=== PATIENT | female | born 1940 | race Caucasian/White ===

== ENCOUNTER 2017-01-04 17:42 | Inpatient (IN) | payer MEDICARE, OTHER ==
--- NOTE | 2017-01-04 18:43 | C.PDOC ---
History Of Present Illness 76F c/o gradual onset headache for the last couple days. no exac or reliev fx. had a headache last ton but otherwise no hx of headaches. also reports int "dizziness" which seems to be spinning sensation not lightheadedness. Time Seen by Provider: 01/04/17 17:57 Past Medical History Vital Signs: Last Vital Signs Temp 98.5 F 01/05/17 08:18 Pulse 98 H 01/05/17 09:01 Resp 20 01/05/17 08:18 BP 170/89 H 01/05/17 08:18 Pulse Ox 98 01/05/17 08:18 - Medical History PMH: Arthritis (MILD), Diabetes, HTN, Hypercholesterolemia, Chronic Kidney Disease ("STAGE 4" ON MED RECORD) - [employer] Procedures ASSISTANCE WITH RESPIRATORY VENTILATION, <24 HRS, CPAP (11/11/15) CONTINUOUS INVASIVE MECHANICAL VENTILATION <96 CONSEC HRS (04/10/14) CYSTOMETROGRAM (03/25/15) CYSTOSCOPY NEC (03/25/15) EXCISION OF STOMACH, ENDO, DIAGN (11/11/15) INSERT INDWELLING CATH (04/11/15) INSERT INFUSION DEV IN R INT JUGULAR VEIN, PERC (11/11/15) INTRODUCE OTH ANTI-INFECT IN CENTRAL VEIN, PERC (11/11/15) TRANSFUSE NONAUT RED BLOOD CELLS IN PERIPH VEIN, PERC (11/11/15) ULTRASONOGRAPHY OF PERICARDIUM, TRANSESOPHAGEAL (11/11/15) Family History: States: Other (nc) - Social History Hx Tobacco Use: No Hx Alcohol Use: No Hx Substance Use: No - Immunization History Hx Tetanus Toxoid Vaccination: No Hx Influenza Vaccination: No Hx Pneumococcal Vaccination: No Review Of Systems Except As Marked, All Systems Reviewed And Found Negative. Constitutional: Negative for: Fever, Chills Eyes: Negative for: Vision Change Cardiovascular: Negative for: Chest Pain Respiratory: Negative for: Cough, Shortness of Breath Gastrointestinal: Positive for: Nausea. Negative for: Vomiting, Abdominal Pain Genitourinary: Negative for: Dysuria Neurological: Positive for: Headache. Negative for: Weakness, Numbness, Incoordination, Change in Speech, Confusion, Altered Mental Status Physical Exam - Physical Exam Appears: Well, Non-toxic, No Acute Distress Skin: Warm, Dry Head: Atraumatic Eye(s): bilateral: PERRL, EOMI Oral Mucosa: Moist Neck: Normal ROM Cardiovascular: Rhythm Regular Respiratory: No Decreased Breath Sounds, No Accessory Muscle Use, No Rales, No Rhonchi, No Wheezing Gastrointestinal/Abdominal: Soft, No Tenderness Extremity: Swelling (1+ pitting edema ble) Pulses: Left Radial: Normal, Right Radial: Normal Neurological/Psych: Oriented x3, Normal Cranial Nerves, Normal Motor, Normal Sensation, Other (no focal deficits) ED Course And Treatment - Laboratory Results Result Diagrams: 01/04/17 19:01 01/04/17 19:01 O2 Sat by Pulse Oximetry: 99 - CT Scan/US CT head Other Rad Studies (CT/US): Read By Radiologist, Radiology Report Reviewed CT/US Interpretation: EXAM: CT Head Without Intravenous Contrast. CLINICAL HISTORY: 76 year old female with dizziness and headache. TECHNIQUE: Axial computed tomography images of the head without intravenous contrast. This CT exam was performed using one or more of the following dose reduction techniques : automated exposure control, adjustment of the mA and/or kV according to patient size, and/or use of. iterative reconstruction technique. EXAM DATE/ TIME: 01/04/17 (6:45pm). COMPARISON: CT HEAD of 11/21/15. FINDINGS: Brain: No acute hemorrhage. No cerebral edema. Age-appropriate atrophic changes. Ventricles: Unremarkable. No ventriculomegaly. Bones/joints: Unremarkable. No acute fracture. Soft tissues: Unremarkable. Sinuses: Unremarkable as visualized. No acute sinusitis. Mastoid air cells: Unremarkable as visualized. No mastoid effusion. IMPRESSION: No acute intracranial pathology is appreciated. Age-appropriate atrophic changes. Similar findings were noted 7 weeks ago. Thank you for allowing us to participate in the care of your patient. Dictated and Authenticated by: Shadia Mehta MD. 01/04/2017 8:03 PM Eastern Time ([place] & [place]) Disposition - Disposition Disposition: HOSPITALIZED Disposition Time: 21:53 Condition: STABLE - Clinical Impression Clinical Impression: UTI (urinary tract infection), Headache, Vertigo
[2017-01-04 18:45] VITALS: BMI 29.2
[2017-01-04 19:04] LABS: BASO # 0.1 K/uL (0.0-0.2); BASO % 0.5 % (0.0-2.0); EOS # 0.1 K/uL (0.0-0.7); EOS % 1.1 % (0.0-4.0); HEMATOCRIT 33.8 % (34.0-47.0); LYMPH # 1.6 K/uL (1.0-4.3); MEAN CELL VOLUME 84.9 fL (81.0-99.0); MEAN CORPUSCULAR HGB CONC 31.8 g/dL (33.0-37.0); MEAN PLATELET VOLUME 6.9 fL (7.2-11.7); MONO # 0.7 K/uL (0.0-0.8); MONO % 6.2 % (0.0-10.0); RED CELL DISTRIBUTION WIDTH 14.2 % (11.5-14.5); WHITE BLOOD COUNT 11.1 K/uL (4.8-10.8)
[2017-01-04 19:12] LABS: POTASSIUM 3.8 mmol/L (3.6-5.2)
[2017-01-04 19:13] LABS: RBC URINE 5 /hpf (0-3); TRANSITIONAL EPITHIAL 1 /hpf (0-3); URINE BACTERIA MANY (<OCC); URINE BILIRUBIN NEGATIVE (NEGATIVE); URINE BLOOD 1+ (NEGATIVE); URINE COLOR Yellow (YELLOW); URINE GLUCOSE (UA) 1+ mg/dL (Normal); URINE KETONE NEGATIVE (NEGATIVE); URINE LEUKOCYTE ESTERASE 3+ Leu/uL (Negative); URINE PROTEIN 2+ mg/dL (NEGATIVE); URINE UROBILINOGEN NORMAL mg/dL (0.2-1.0); WBC URINE 92 /hpf (0-5)
[2017-01-04 19:15] LABS: ALB/GLOB RATIO 1.1 (1.0-2.1); BILIRUBIN,TOTAL 0.5 mg/dL (0.2-1.3); TOTAL PROTEIN 8.6 g/dL (6.3-8.3)
[2017-01-05] MEDS: Piperacill/Tazo 2.25gm in Dex 50 ML IVPB SCH ×4 (00:21→22:05)
[2017-01-05] MEDS: (Novolog) Insulin Aspart, Recombinant 100 u/ml 10 ml vial SC SCH ×4 (07:57→22:33)
--- NOTE | 2017-01-05 08:08 | CT ---
PROCEDURE: CT HEAD WITHOUT CONTRAST. HISTORY: headache COMPARISON: Comparison is made to the previous study dated 11/21/2015 TECHNIQUE: Axial computed tomography images were obtained through the head/brain without intravenous contrast. Radiation dose: Total exam DLP = 699.76 mGy-cm. FINDINGS: HEMORRHAGE: No intracranial hemorrhage. BRAIN: No mass effect or edema. [id number] atrophy and mild chronic microvascular white matter ischemic disease are again noted. VENTRICLES: Unremarkable. No hydrocephalus. CALVARIUM: Unremarkable. PARANASAL SINUSES: Unremarkable as visualized. No significant inflammatory changes. MASTOID AIR CELLS: Unremarkable as visualized. No inflammatory changes. OTHER FINDINGS: None. IMPRESSION: No evidence of acute intracranial hemorrhage territorial infarct mass effect or midline shift. Preliminary report was submitted by virtual Radiology.
[2017-01-05] MEDS: Metoprolol Succinate 50 mg XL Tab PO SCH (09:43)
[2017-01-05] MEDS ORDERED: Metoprolol Succinate 25 mg XL Tab PO SCH (10:00)
--- NOTE | 2017-01-05 12:12 | CARD ---
APPROVED REPORT EKG Measurement Heart [id number] <Conclusion> Normal sinus rhythm Normal ECG
[2017-01-05] MEDS: Rosuvastatin Calcium 2.5 mg Tab PO SCH (22:05)
--- NOTE | 2017-01-05 23:43 | CP.PCM.HP ---
History of Present Illness - History of Present Illness History of Present Illness: Cheif complain:abdominal pain and headache Pt is a 76 year old female well known to me with PMH significant for HTn, Hyperlipidemia, neurogenic bladder on foleys, Osteoarthritis, CKD who is complaint to medications, follow up, c/o gradual onset headache for the last couple days. no exac or reliev fx. had a headache last ton but otherwise no hx of headaches. also reports int "dizziness" which seems to be spinning sensation not lightheadedness. Pt have been having persistant abdo mnial pain since last 2 weeks which is intermittent associated with nausea, vomitting, headaches, body aches, fever, chills, anorexia and malaise. she has gen fatigue and weakness, urine is cloudy, last vomiting was last night, today she is nauseous. Review of Systems - Review of Systems Systems not reviewed;Unavailable: Acuity of Condition - Constitutional Constitutional: Anorexia, Chills, Fatigue, Fever - EENT Eyes: absent: As Per HPI, Blind Spots, Blurred Vision, Change in Vision, Decreased Night Vision, Diplopia, Discharge, Dry Eye, Exophthalmos, Floaters, Irritation, Itchy Eyes, Loss of Peripheral Vision, Pain, Photophobia, Requires Corrective Lenses, Sees Flashes, Spots in Vision, Tunnel Vision, Other Visual Disturbances, Loss of Vision, Other Nose/Mouth/Throat: absent: As Per HPI, Epistaxis, Nasal Congestion, Nasal Discharge, Nasal Obstruction, Nasal Trauma, Nose Pain, Post Nasal Drip, Sinus Pain, Sinus Pressure, Bleeding Gums, Change in Voice, Dental Pain, Dry Mouth, Dysphagia, Halitosis, Hoarsness, Lip Swelling, Mouth Lesions, Mouth Pain, Odynophagia, Sore Throat, Throat Swelling, Tongue Swelling, Facial Pain, Neck Pain, Neck Mass, Other - Cardiovascular Cardiovascular: absent: As Per HPI, Acrocyanosis, Chest Pain, Chest Pain at Rest , Chest Pain with Activity, Claudication, Diaphoresis, Dyspnea, Dyspnea on Exertion, Edema, Irregular Heart Rhythm, Pain Radiating to Arm/Neck/Jaw, Leg Edema, Leg Ulcers, Lightheadedness, Orthopnea, Palpitations, Paroxysmal Nocturnal Dyspnea, Pedal Edema, Radiating Pain, Rapid Heart Rate, Slow Heart Rate, Syncope, Other - Respiratory Respiratory: absent: As Per HPI, Cough, Dyspnea, Hemoptysis, Dyspnea on Exertion , Wheezing, Snoring, Stridor, Pain on Inspiration, Chest Congestion, Excessive Mucous Production, Change in Mucous Color, Pain with Coughing, Other - Gastrointestinal Gastrointestinal: Abdominal Pain, Change in Bowel Habits, Nausea - Genitourinary Genitourinary: Change in Urinary Stream, Dysuria, Pyuria, Urinary Frequency, Urinary Urgency - Musculoskeletal Musculoskeletal: Back Pain, Muscle Weakness, Myalgias - Neurological Neurological: Dizziness, Headaches Past Patient History - Infectious Disease Hx of Infectious Diseases: None - Past Medical History & Family History Past Medical History?: Yes - Past Social History Smoking Status: Never Smoked - CARDIAC Hx Hypercholesterolemia: Yes Hx Hypertension: Yes - PULMONARY Hx Respiratory Disorders: No - NEUROLOGICAL Hx Neurological Disorder: No - HEENT Hx HEENT Problems: Yes Hx Cataracts: Yes (BENJIE IOL) Hx Glaucoma: Yes - RENAL Hx Chronic Kidney Disease: Yes ("STAGE 4" ON MED RECORD) - HEMATOLOGICAL/ONCOLOGICAL Hx Blood Disorders: No - INTEGUMENTARY Hx Dermatological Problems: No - MUSCULOSKELETAL/RHEUMATOLOGICAL Hx Arthritis: Yes (MILD) - GASTROINTESTINAL Hx Gastrointestinal Disorders: No - GENITOURINARY/GYNECOLOGICAL Hx Genitourinary Disorders: Yes (PT. HAS PERALES CATH INPLACE(01/23/16)) Hx Urinary Tract Infection: Yes Other/Comment: Perales Catheter - PSYCHIATRIC Hx Substance Use: No - SURGICAL HISTORY Hx Surgeries: Yes Hx Herniorrhaphy: Yes (UMBILICAL HERNIA) - ANESTHESIA Hx Anesthesia: Yes Hx Anesthesia Reactions: No Hx Malignant Hyperthermia: No Meds Allergies/Adverse Reactions: Allergies Allergy/AdvReac Type Severity Reaction Status Date / Time No Known Allergies Allergy Verified 01/04/17 18:45 Physical Exam - Constitutional Appears: No Acute Distress - Eye Exam Eye Exam: EOMI, Normal appearance, PERRL Pupil Exam: NORMAL ACCOMODATION, PERRL - ENT Exam ENT Exam: Mucous Membranes Moist, Normal Exam - Respiratory Exam Respiratory Exam: NORMAL BREATHING PATTERN - Cardiovascular Exam Cardiovascular Exam: REGULAR RHYTHM - GI/Abdominal Exam GI & Abdominal Exam: Normal Bowel Sounds, Soft. absent: Tenderness Additional comments: foleys in place with cloudy urine - Skin Skin Exam: Pallor Additional comments: senile turgor Results - Vital Signs Recent Vital Signs: Last Vital Signs Temp 98.2 F 01/05/17 15:42 Pulse 86 01/05/17 16:00 Resp 20 01/05/17 15:42 BP 125/84 01/05/17 15:42 Pulse Ox 97 01/05/17 15:42 - Labs Result Diagrams: 01/04/17 19:01 01/04/17 19:01 Labs: Laboratory Results - last 24 hr 01/05/17 21:02 POC Glucose (mg/dL) 223 H Assessment & Plan (1) UTI (urinary tract infection) Assessment and Plan: rule out septicemia pancultures Status: Acute Priority: High (2) Neurogenic bladder disorder Status: Acute (3) Abdominal pain Status: Acute (4) CKD (chronic kidney disease) Status: Acute (5) Diabetes Status: Acute
[2017-01-06] MEDS: Piperacill/Tazo 2.25gm in Dex 50 ML IVPB SCH ×3 (05:21→21:18)
[2017-01-06] MEDS: (Novolog) Insulin Aspart, Recombinant 100 u/ml 10 ml vial SC SCH ×4 (08:08→21:53)
[2017-01-06] MEDS: Metoprolol Succinate 50 mg XL Tab PO SCH (09:22)
[2017-01-06 12:06] LABS: BASO # 0.1 K/uL (0.0-0.2); BASO % 0.6 % (0.0-2.0); EOS # 0.3 K/uL (0.0-0.7); EOS % 3.7 % (0.0-4.0); HEMATOCRIT 33.6 % (34.0-47.0); LYMPH # 2.1 K/uL (1.0-4.3); LYMPH % 23.2 % (20.0-40.0); MEAN CELL VOLUME 85.5 fL (81.0-99.0); MEAN CORPUSCULAR HEMOGLOBIN 28.2 pg (27.0-31.0); MEAN PLATELET VOLUME 7.5 fL (7.2-11.7); MONO # 0.7 K/uL (0.0-0.8); MONO % 8.1 % (0.0-10.0); RED CELL DISTRIBUTION WIDTH 14.6 % (11.5-14.5)
[2017-01-06 12:12] LABS: POTASSIUM 4.7 mmol/L (3.6-5.2)
[2017-01-06 12:16] LABS: CALCIUM 8.2 mg/dl (8.6-10.4)
[2017-01-06] MEDS: Rosuvastatin Calcium 2.5 mg Tab PO SCH (21:18)
[2017-01-07] MEDS: Piperacill/Tazo 2.25gm in Dex 50 ML IVPB SCH ×3 (05:53→22:35)
[2017-01-07] MEDS: (Novolog) Insulin Aspart, Recombinant 100 u/ml 10 ml vial SC SCH ×4 (07:46→21:42)
[2017-01-07] MEDS: Metoprolol Succinate 50 mg XL Tab PO SCH (09:25)
[2017-01-07] MEDS ORDERED: Influenza Virus Vaccine 45 mcg/0.5 ml Syr IM ONE (10:00)
[2017-01-07] MEDS ORDERED: Pneumococcal 23-Valent Vaccine IM ONE (10:00)
--- NOTE | 2017-01-07 16:18 | CP.PCM.PN ---
Subjective - Date & Time of Evaluation Date of Evaluation: 01/06/17 - Subjective Subjective: pt seen and examined, is afebrile, on zosyn, for complicated UTI, continue current meds Objective - Vital Signs/Intake and Output Vital Signs (last 24 hours): Temp Pulse Resp BP Pulse Ox 99.4 F 75 20 152/89 H 97 01/07/17 00:00 01/07/17 00:35 01/07/17 00:00 01/07/17 00:00 01/07/17 00:00 Intake and Output: 01/07/17 01/07/17 06:59 18:59 Intake Total 455 Output Total 650 Balance -195 - Medications Medications: Current Medications Acetaminophen (Tylenol 325mg Tab) 650 mg PO Q6 PRN PRN Reason: Pain, moderate (4-7) Last Admin: 01/07/17 12:09 Dose: 650 mg Docusate Sodium (Colace) 100 mg PO BID [facility] Last Admin: 01/07/17 09:25 Dose: 100 mg Heparin Sodium (Porcine) (Heparin) 5,000 units SC Q12 [facility] Last Admin: 01/07/17 09:25 Dose: 5,000 units Piperacillin Sod/Tazobactam Sod (Zosyn 2.25 Gm Iv Premix) 50 mls @ 100 mls/hr IVPB Q8 [facility] Last Admin: 01/07/17 14:41 Dose: 100 mls/hr Imipenem/Cilastatin Sodium 250 (mg/ Sodium Chloride) 100 mls @ 100 mls/hr IVPB Q12 [facility] Insulin Aspart (Novolog) 0 unit SC ACHS [facility] PRN Reason: Protocol Last Admin: 01/07/17 12:05 Dose: 3 unit Losartan Potassium (Cozaar) 25 mg PO DAILY [facility] Last Admin: 01/07/17 09:25 Dose: 25 mg Metoprolol Succinate (Toprol Xl) 50 mg PO DAILY [facility] Last Admin: 01/07/17 09:25 Dose: 50 mg Rosuvastatin Calcium (Crestor) 2.5 mg PO HS [facility] Last Admin: 01/06/17 21:18 Dose: 2.5 mg Sennosides (Senokot Tab) 8.6 mg PO DAILY [facility] Last Admin: 01/07/17 09:25 Dose: 8.6 mg - Labs Labs: 01/06/17 11:57 01/06/17 11:57 - Constitutional Appears: No Acute Distress - Head Exam Head Exam: ATRAUMATIC, NORMAL INSPECTION, NORMOCEPHALIC - Eye Exam Eye Exam: EOMI, Normal appearance, PERRL Pupil Exam: NORMAL ACCOMODATION, PERRL - Respiratory Exam Respiratory Exam: Clear to Ausculation Bilateral, NORMAL BREATHING PATTERN - Cardiovascular Exam Cardiovascular Exam: REGULAR RHYTHM, +S1, +S2. absent: Murmur - GI/Abdominal Exam GI & Abdominal Exam: Soft, Normal Bowel Sounds. absent: Tenderness Assessment and Plan (1) UTI (urinary tract infection) Status: Acute (2) Neurogenic bladder disorder Status: Acute (3) Abdominal pain Status: Acute (4) CKD (chronic kidney disease) Status: Acute (5) Diabetes Status: Acute
[2017-01-07] MEDS: Imipenem/Cilastatin 250 MG in Sodium Chloride 100 ML IVPB SCH (21:23)
[2017-01-07] MEDS: Rosuvastatin Calcium 2.5 mg Tab PO SCH (21:28)
[2017-01-07] MEDS ORDERED: Imipenem/Cilastatin 500 MG in Dextrose 5% In Water 100 ML IVPB SCH (22:00)
--- NOTE | 2017-01-08 00:39 | CP.PCM.PN ---
Subjective - Date & Time of Evaluation Date of Evaluation: 01/07/17 - Subjective Subjective: Pt seen & examined,, is improving, afebrile, on zosyn, for complicated UTI, continue current meds Objective - Vital Signs/Intake and Output Vital Signs (last 24 hours): Temp Pulse Resp BP Pulse Ox 98.6 F 71 20 146/83 96 01/07/17 23:35 01/07/17 23:35 01/07/17 23:35 01/07/17 23:35 01/07/17 23:35 Intake and Output: 01/07/17 01/08/17 18:59 06:59 Intake Total 240 250 Output Total 450 Balance 240 -200 - Medications Medications: Current Medications Acetaminophen (Tylenol 325mg Tab) 650 mg PO Q6 PRN PRN Reason: Pain, moderate (4-7) Last Admin: 01/07/17 21:21 Dose: 650 mg Docusate Sodium (Colace) 100 mg PO BID [facility] Last Admin: 01/07/17 17:59 Dose: Not Given Heparin Sodium (Porcine) (Heparin) 5,000 units SC Q12 [facility] Last Admin: 01/07/17 21:28 Dose: 5,000 units Piperacillin Sod/Tazobactam Sod (Zosyn 2.25 Gm Iv Premix) 50 mls @ 100 mls/hr IVPB Q8 [facility] Last Admin: 01/07/17 22:35 Dose: 100 mls/hr Imipenem/Cilastatin Sodium 250 (mg/ Sodium Chloride) 100 mls @ 100 mls/hr IVPB Q12 [facility] Last Admin: 01/07/17 21:23 Dose: 100 mls/hr Insulin Aspart (Novolog) 0 unit SC ACHS [facility] PRN Reason: Protocol Last Admin: 01/07/17 21:42 Dose: Not Given Losartan Potassium (Cozaar) 25 mg PO DAILY [facility] Last Admin: 01/07/17 09:25 Dose: 25 mg Metoprolol Succinate (Toprol Xl) 50 mg PO DAILY [facility] Last Admin: 01/07/17 09:25 Dose: 50 mg Rosuvastatin Calcium (Crestor) 2.5 mg PO HS [facility] Last Admin: 01/07/17 21:28 Dose: 2.5 mg Sennosides (Senokot Tab) 8.6 mg PO DAILY [facility] Last Admin: 01/07/17 09:25 Dose: 8.6 mg - Labs Labs: 01/06/17 11:57 01/06/17 11:57 - Constitutional Appears: No Acute Distress - Head Exam Head Exam: ATRAUMATIC, NORMAL INSPECTION, NORMOCEPHALIC - Eye Exam Eye Exam: EOMI, Normal appearance, PERRL Pupil Exam: NORMAL ACCOMODATION, PERRL - Respiratory Exam Respiratory Exam: Clear to Ausculation Bilateral, NORMAL BREATHING PATTERN - Cardiovascular Exam Cardiovascular Exam: REGULAR RHYTHM, +S1, +S2. absent: Murmur - GI/Abdominal Exam GI & Abdominal Exam: Soft, Normal Bowel Sounds. absent: Tenderness Assessment and Plan (1) UTI (urinary tract infection) Status: Acute (2) Neurogenic bladder disorder Status: Acute (3) Abdominal pain Status: Acute (4) CKD (chronic kidney disease) Status: Acute (5) Diabetes Status: Acute
[2017-01-08] MEDS: Piperacill/Tazo 2.25gm in Dex 50 ML IVPB SCH ×3 (05:59→22:38)
[2017-01-08 07:18] LABS: BASO # 0.1 K/uL (0.0-0.2); BASO % 0.8 % (0.0-2.0); EOS # 0.5 K/uL (0.0-0.7); EOS % 4.8 % (0.0-4.0); HEMATOCRIT 34.3 % (34.0-47.0); LYMPH # 2.1 K/uL (1.0-4.3); LYMPH % 22.5 % (20.0-40.0); MEAN CORPUSCULAR HEMOGLOBIN 27.4 pg (27.0-31.0); MEAN CORPUSCULAR HGB CONC 32.2 g/dL (33.0-37.0); MEAN PLATELET VOLUME 7.3 fL (7.2-11.7); MONO # 0.8 K/uL (0.0-0.8); RED CELL DISTRIBUTION WIDTH 14.3 % (11.5-14.5); WHITE BLOOD COUNT 9.4 K/uL (4.8-10.8)
[2017-01-08 07:35] LABS: POTASSIUM 4.3 mmol/L (3.6-5.2)
[2017-01-08 07:39] LABS: CALCIUM 7.8 mg/dl (8.6-10.4)
[2017-01-08] MEDS: (Novolog) Insulin Aspart, Recombinant 100 u/ml 10 ml vial SC SCH ×4 (08:37→21:30)
[2017-01-08] MEDS: Metoprolol Succinate 50 mg XL Tab PO SCH (09:25)
[2017-01-08] MEDS: Imipenem/Cilastatin 250 MG in Sodium Chloride 100 ML IVPB SCH ×2 (10:30→21:27)
[2017-01-08 16:49] VITALS: RESP 20
[2017-01-08] MEDS: Rosuvastatin Calcium 2.5 mg Tab PO SCH (21:28)
[2017-01-09 00:19] VITALS: BP 146/82; TEMP 98.2
[2017-01-09] MEDS: Piperacill/Tazo 2.25gm in Dex 50 ML IVPB SCH (05:47)
[2017-01-09] MEDS: (Novolog) Insulin Aspart, Recombinant 100 u/ml 10 ml vial SC SCH (07:59)
[2017-01-09 08:55] VITALS: PULSE 78; O2SAT 98
[2017-01-09] MEDS: Imipenem/Cilastatin 250 MG in Sodium Chloride 100 ML IVPB SCH (09:32)
[2017-01-09] MEDS: Metoprolol Succinate 50 mg XL Tab PO SCH (09:32)
[2017-01-09] MEDS ORDERED: Pneumococcal 23-Valent Vaccine IM ONE (10:00)
--- NOTE | 2017-01-09 22:13 | CP.PCM.PN ---
Subjective - Date & Time of Evaluation Date of Evaluation: 01/08/17 - Subjective Subjective: Pt seen & examined,, is improving, afebrile, on zosyn, for complicated UTI, continue current meds Objective - Vital Signs/Intake and Output Vital Signs (last 24 hours): Temp Pulse Resp BP Pulse Ox 98.2 F 78 20 146/82 98 01/09/17 08:00 01/09/17 08:00 01/09/17 08:00 01/09/17 08:00 01/09/17 08:00 - Labs Labs: 01/08/17 07:08 01/08/17 07:08 - Constitutional Appears: No Acute Distress - Head Exam Head Exam: ATRAUMATIC, NORMAL INSPECTION, NORMOCEPHALIC - Eye Exam Eye Exam: EOMI, Normal appearance, PERRL Pupil Exam: NORMAL ACCOMODATION, PERRL - Respiratory Exam Respiratory Exam: Clear to Ausculation Bilateral, NORMAL BREATHING PATTERN - Cardiovascular Exam Cardiovascular Exam: REGULAR RHYTHM, +S1, +S2. absent: Murmur - Neurological Exam Neurological Exam: Alert, Awake, CN II-XII Intact, Normal Gait, Oriented x3 - Psychiatric Exam Psychiatric exam: Normal Affect, Normal Mood Assessment and Plan (1) UTI (urinary tract infection) Status: Acute (2) Neurogenic bladder disorder Status: Acute (3) Abdominal pain Status: Acute (4) CKD (chronic kidney disease) Status: Acute (5) Diabetes Status: Acute
--- NOTE | 2017-01-09 22:15 | CP.PCM.DIS ---
Provider - Provider Date of Admission: 01/05/17 16:41 Attending physician: Lorenzo Lyn MD Diagnosis - Discharge Diagnosis (1) UTI (urinary tract infection) Status: Acute Priority: High (2) Neurogenic bladder disorder Status: Acute (3) Abdominal pain Status: Acute (4) CKD (chronic kidney disease) Status: Acute (5) Diabetes Status: Acute Hospital Course - Lab Results Lab Results: Most Recent Lab Values WBC 9.4 K/uL (4.8-10.8) 01/08/17 07:08 RBC 4.03 Mil/uL (3.80-5.20) 01/08/17 07:08 Hgb 11.0 g/dL (11.0-16.0) 01/08/17 07:08 Hct 34.3 % (34.0-47.0) 01/08/17 07:08 MCV 85.0 fL (81.0-99.0) 01/08/17 07:08 MCH 27.4 pg (27.0-31.0) 01/08/17 07:08 MCHC 32.2 g/dL (33.0-37.0) L 01/08/17 07:08 RDW 14.3 % (11.5-14.5) 01/08/17 07:08 Plt Count 284 K/uL (130-400) 01/08/17 07:08 MPV 7.3 fL (7.2-11.7) 01/08/17 07:08 Neut % (Auto) 63.9 % (50.0-75.0) 01/08/17 07:08 Lymph % (Auto) 22.5 % (20.0-40.0) 01/08/17 07:08 Bell % (Auto) 8.0 % (0.0-10.0) 01/08/17 07:08 Eos % (Auto) 4.8 % (0.0-4.0) H 01/08/17 07:08 Baso % (Auto) 0.8 % (0.0-2.0) 01/08/17 07:08 Neut # 6.0 K/uL (1.8-7.0) 01/08/17 07:08 Lymph # 2.1 K/uL (1.0-4.3) 01/08/17 07:08 Bell # 0.8 K/uL (0.0-0.8) 01/08/17 07:08 Eos # 0.5 K/uL (0.0-0.7) 01/08/17 07:08 Baso # 0.1 K/uL (0.0-0.2) 01/08/17 07:08 Sodium 136 mmol/L (132-148) 01/08/17 07:08 Potassium 4.3 mmol/L (3.6-5.2) 01/08/17 07:08 Chloride 99 mmol/L (98-107) 01/08/17 07:08 Carbon Dioxide 23 mmol/L (22-30) 01/08/17 07:08 Anion Gap 19 (10-20) 01/08/17 07:08 BUN 39 mg/dL (7-17) H 01/08/17 07:08 Creatinine 3.7 MG/DL (0.7-1.2) H 01/08/17 07:08 Est GFR ( Amer) 14 01/08/17 07:08 Est GFR (Non-Af Amer) 12 01/08/17 07:08 POC Glucose (mg/dL) 205 mg/dL (65-110) H 01/09/17 06:16 Random Glucose 142 mg/dL (65-105) H 01/08/17 07:08 Calcium 7.8 mg/dl (8.6-10.4) L 01/08/17 07:08 Total Bilirubin 0.5 mg/dL (0.2-1.3) 01/04/17 19:01 AST 24 U/L (14-36) 01/04/17 19:01 ALT 14 U/L (9-52) 01/04/17 19:01 Alkaline Phosphatase 180 U/L (38-126) H D 01/04/17 19:01 Total Protein 8.6 g/dL (6.3-8.3) H 01/04/17 19:01 Albumin 4.5 g/dL (3.5-5.0) 01/04/17 19:01 Globulin 4.1 gm/dL (2.2-3.9) H 01/04/17 19:01 Albumin/Globulin Ratio 1.1 (1.0-2.1) 01/04/17 19:01 Urine Color Yellow (YELLOW) 01/04/17 19:01 Urine Clarity Hazy (Clear) 01/04/17 19:01 Urine pH 5.0 (5.0-8.0) 01/04/17 19:01 Ur Specific Adrian 1.014 (1.003-1.030) 01/04/17 19:01 Urine Protein 2+ mg/dL (NEGATIVE) H 01/04/17 19:01 Urine Glucose (UA) 1+ mg/dL (Normal) 01/04/17 19:01 Urine Ketones Negative mg/dL (NEGATIVE) 01/04/17 19:01 Urine Blood 1+ (NEGATIVE) H 01/04/17 19:01 Urine Nitrate Negative (NEGATIVE) 01/04/17 19:01 Urine Bilirubin Negative (NEGATIVE) 01/04/17 19:01 Urine Urobilinogen Normal mg/dL (0.2-1.0) 01/04/17 19:01 Ur Leukocyte Esterase 3+ Raj/uL (Negative) H 01/04/17 19:01 Urine WBC (Auto) 92 /hpf (0-5) H 01/04/17 19:01 Urine RBC (Auto) 5 /hpf (0-3) H 01/04/17 19:01 Ur Squamous Epith Cells 1 /hpf (0-5) 01/04/17 19:01 Ur Transition Epith Cell 1 /hpf (0-3) 01/04/17 19:01 Urine Bacteria Many (<OCC) H 01/04/17 19:01 - Hospital Course Hospital Course: Pt is afebrile, urine positive for klebeseilla UTI sensitive to UTI, foleys in place clear urine, pt is for discharge with PO outpateint antibiotics Discharge Exam - Head Exam Head Exam: ATRAUMATIC, NORMAL INSPECTION, NORMOCEPHALIC - Eye Exam Eye Exam: Normal appearance - ENT Exam ENT Exam: Mucous Membranes Moist - Respiratory Exam Respiratory Exam: Clear to PA & Lateral, NORMAL BREATHING PATTERN - Cardiovascular Exam Cardiovascular Exam: REGULAR RHYTHM, +S1, +S2 - GI/Abdominal Exam GI & Abdominal Exam: Normal Bowel Sounds Discharge Plan - Follow Up Plan Condition: STABLE Disposition: HOME/ ROUTINE Instructions: Urinary Tract Infection in Women (DC), Mckeon Catheter Placement and Care (DC), Diabetes Mellitus Type 2 in Adults (DC), Urinary Leg Bag (GEN)
--- NOTE | 2017-01-10 23:06 | PQF GENQUE ---
This form is a permanent part of the medical record Clarification of your documentation is requested to better reflect the severity of illness and intensity of treatment of your patient. PLEASE, CLARIFY IF UTI IS DUE TO PERALES CATHETER Indicators present [X ] Specify: [ UTI, VERTIGO , HEADACHE] [X] Specify: [ NEUROGENIC BLADDER WITH CHRONIC PERALES CATHETER IN PLACE ] [X] Specify: [ CKD STAGE 4] X] Specify: [ DM, HTN, OA, HYPERLIPIDEMIA] Location in the medical record that reflects the above clinical findings: [ER , P. NOTES, D/C SUMMARY] Treatment Provided: [ANTIBIOTICS] PHYSICIAN'S RESPONSE Based on your medical judgment of the clinical indicators outlined above please clarify the following: [] Practitioner response [] If unable to determine, please check the box, sign and date. Present On Admission (POA) Indicator: [] Present at the time of admission [] Not present at the time of admission [] Clinically Undetermined In responding to this query, please exercise your independent professional judgment. The fact that a question is asked does not imply that any particular answer is desired or expected. Thank you for your clarification on this documentation. If you have any questions please call:[ ] * Thank you, [ Kell Melgar, CCS, DIRECTOR SKILLS] negative cutter ZULEYMA
== END 2017-01-09 11:45 | disposition home or self-care (01) | DRG 699 ==
LOC: C.ER 17:42 → C.9E 21:53 → C.5T 01-05 06:46 → OBSVTOIN 01-05 16:41
PROVIDERS: ADMIT Internal Medicine; ATTEND Internal Medicine
DX: T83.511A Infection and inflammatory reaction due to indwelling urethral catheter, initial encounter (principal); N18.4 Chronic kidney disease, stage 4 (severe); E11.22 Type 2 diabetes mellitus with diabetic chronic kidney disease; R63.0 Anorexia; N39.0 Urinary tract infection, site not specified; B96.1 Klebsiella pneumoniae [K. pneumoniae] as the cause of diseases classified elsewhere; N31.9 Neuromuscular dysfunction of bladder, unspecified; I12.9 Hypertensive chronic kidney disease with stage 1 through stage 4 chronic kidney disease, or unspecified chronic kidney disease; Z96.1 Presence of intraocular lens; R42 Dizziness and giddiness; R51 Headache; E78.5 Hyperlipidemia, unspecified; H40.9 Unspecified glaucoma; Z79.4 Long term (current) use of insulin; Z98.42 Cataract extraction status, left eye; Z98.41 Cataract extraction status, right eye; M19.90 Unspecified osteoarthritis, unspecified site

== ENCOUNTER 2017-05-16 08:36 | Emergency (ER) | payer MEDICARE ==
[2017-05-16 08:37] VITALS: BMI 29.2
--- NOTE | 2017-05-16 09:20 | C.PDOC ---
History Of Present Illness 76 y/o female pmhx diabetes presents to the ED with complaints to of dysuria and pink tinged urine x2 days. Pt with chronic indwelling monzon for 1+ years due to urinary retention. Pt denies fever, chill, nausea, vomiting, abdominal pain or any other complaints. Pt states she is due for monzon change. She usually has the Monzon changed every 3 months. Time Seen by Provider: 05/16/17 08:52 Chief Complaint (Nursing): Female Genitourinary History Per: Patient History/Exam Limitations: no limitations Onset/Duration Of Symptoms: Days Current Symptoms Are (Timing): Still Present Severity: Moderate Associated Symptoms: Urinary Symptoms. denies: Fever, Chills, Nausea, Vomiting , Diarrhea, Chest Pain Recent travel outside of the [place]: No Past Medical History Reviewed: Historical Data, Nursing Documentation, Vital Signs Vital Signs: Last Vital Signs Temp 99.1 F 05/16/17 10:45 Pulse 95 H 05/16/17 10:45 Resp 18 05/16/17 10:45 BP 132/84 05/16/17 10:45 Pulse Ox 96 05/16/17 10:45 - Medical History PMH: Arthritis (MILD), Diabetes, HTN, Hypercholesterolemia, Chronic Kidney Disease ("STAGE 4" ON MED RECORD) - [employer] Procedures ASSISTANCE WITH RESPIRATORY VENTILATION, <24 HRS, CPAP (11/11/15) CONTINUOUS INVASIVE MECHANICAL VENTILATION <96 CONSEC HRS (04/10/14) CYSTOMETROGRAM (03/25/15) CYSTOSCOPY NEC (03/25/15) EXCISION OF STOMACH, ENDO, DIAGN (11/11/15) INSERT INDWELLING CATH (04/11/15) INSERT INFUSION DEV IN R INT JUGULAR VEIN, PERC (11/11/15) INTRODUCE OTH ANTI-INFECT IN CENTRAL VEIN, PERC (11/11/15) TRANSFUSE NONAUT RED BLOOD CELLS IN PERIPH VEIN, PERC (11/11/15) ULTRASONOGRAPHY OF PERICARDIUM, TRANSESOPHAGEAL (11/11/15) Family History: States: Unknown Family Hx - Social History Hx Tobacco Use: No Hx Alcohol Use: No Hx Substance Use: No - Immunization History Hx Tetanus Toxoid Vaccination: No Hx Influenza Vaccination: No Hx Pneumococcal Vaccination: No Review Of Systems Except As Marked, All Systems Reviewed And Found Negative. Constitutional: Negative for: Fever, Chills Cardiovascular: Negative for: Chest Pain Respiratory: Negative for: Shortness of Breath Gastrointestinal: Negative for: Nausea, Vomiting, Abdominal Pain, Diarrhea Genitourinary: Positive for: Dysuria, Hematuria Physical Exam - Physical Exam Appears: Non-toxic, No Acute Distress Skin: Warm, Dry, No Rash Head: Atraumatic, Normacephalic Neck: Normal, Normal ROM, Supple Chest: Symmetrical Cardiovascular: Rhythm Regular (tachycardic) Respiratory: Normal Breath Sounds, No Rales, No Rhonchi, No Wheezing Gastrointestinal/Abdominal: Normal Exam, Soft, No Tenderness Back: No CVA Tenderness Pelvic: Other (monzon in place) Extremity: Normal ROM Extremity: Bilateral: Atraumatic Neurological/Psych: Oriented x3, Normal Speech, Normal Cognition, Other (alert, cooperative) ED Course And Treatment - Laboratory Results Result Diagrams: 05/16/17 10:00 05/16/17 10:00 O2 Sat by Pulse Oximetry: 98 (room air) Pulse Ox Interpretation: Normal Progress Note: Plan: Labs, UA, urine culture, IV fluids Medical Decision Making Medical Decision Making: Patient with UTI. Called Dr. Rosario, awaiting response. Will treat with Abx. d/c to follow up. Disposition Counseled Patient/Family Regarding: Studies Performed, Diagnosis, Need For Followup, Rx Given - Disposition Referrals: Arcenio Rosario MD [Staff Provider] - Disposition: HOME/ ROUTINE Disposition Time: 12:01 Condition: STABLE Prescriptions: Nitrofurantoin Macrocrystals [Macrobid] 1 cap PO BID #14 cap Instructions: Urinary Tract Infection in Women (ED), Catheter-associated Urinary Tract Infection (ED) Forms: [employer] (Romanian) - POA Present On Arrival: None - Clinical Impression Clinical Impression: UTI (urinary tract infection) - Scribe Statement The provider has reviewed the documentation as recorded by the Antonino Valadez Provider Attestation: All medical record entries made by the Tainaibe were at my direction and personally dictated by me. I have reviewed the chart and agree that the record accurately reflects my personal performance of the history, physical exam, medical decision making, and the department course for this patient. I have also personally directed, reviewed, and agree with the discharge instructions and disposition.
[2017-05-16 10:04] LABS: BASO # 0.1 K/uL (0.0-0.2); BASO % 0.5 % (0.0-2.0); EOS # 0.1 K/uL (0.0-0.7); EOS % 0.5 % (0.0-4.0); HEMOGLOBIN 11.3 g/dL (11.0-16.0); LYMPH # 2.2 K/uL (1.0-4.3); LYMPH % 13.1 % (20.0-40.0); MEAN CELL VOLUME 84.9 fL (81.0-99.0); MEAN CORPUSCULAR HEMOGLOBIN 27.8 pg (27.0-31.0); MEAN CORPUSCULAR HGB CONC 32.7 g/dL (33.0-37.0); MEAN PLATELET VOLUME 7.5 fL (7.2-11.7); MONO # 1.1 K/uL (0.0-0.8); MONO % 6.6 % (0.0-10.0); NEUT # 13.3 K/uL (1.8-7.0); NEUT % 79.3 % (50.0-75.0); RBC 4.05 Mil/uL (3.80-5.20); RED CELL DISTRIBUTION WIDTH 14.4 % (11.5-14.5)
[2017-05-16 10:07] LABS: WHITE BLOOD COUNT 16.7 K/uL (4.8-10.8)
[2017-05-16 10:14] LABS: SQUAMOUS EPITHIAL < 1 /hpf (0-5); URINE BILIRUBIN NEGATIVE (NEGATIVE); URINE BLOOD 3+ (NEGATIVE); URINE CLARITY Hazy (Clear); URINE COLOR Yellow (YELLOW); URINE GLUCOSE (UA) 3+ mg/dL (Normal); URINE LEUKOCYTE ESTERASE 3+ Leu/uL (Negative); URINE NITRATE NEGATIVE (NEGATIVE); URINE PROTEIN 1+ mg/dL (NEGATIVE); URINE UROBILINOGEN NORMAL mg/dL (0.2-1.0); WBC CLUMPS RARE /hpf
[2017-05-16 10:15] LABS: ALBUMIN 3.8 g/dL (3.5-5.0)
[2017-05-16 10:18] LABS: CALCIUM 8.2 mg/dl (8.6-10.4)
[2017-05-16] MEDS ORDERED: (Novolog) Insulin Aspart, Recombinant 100 u/ml 10 ml vial SC STA (10:58)
[2017-05-16] MEDS ORDERED: cefTRIAXone IV 1 gm in Dextros 50 ML IVPB ONE ×2 (11:01→11:08)
[2017-05-16 11:03] VITALS: RESP 18
[2017-05-16] MEDS ORDERED: (Novolog) Insulin Aspart, Recombinant 100 u/ml 10 ml vial ONE (11:07)
[2017-05-16 12:30] VITALS: BP 131/84; PULSE 103; TEMP 98.2; O2SAT 100
== END 2017-05-16 12:30 | disposition home or self-care (01) ==
LOC: C.ER 08:36
DX: N39.0 Urinary tract infection, site not specified (principal); E11.9 Type 2 diabetes mellitus without complications
CPT/HCPCS: 51702; 80053; 81001; 82948; 85025; 87086; 96374; 99285; J0696

== ENCOUNTER 2017-08-03 15:11 | Emergency (ER) | payer MEDICARE ==
[2017-08-03 15:11] VITALS: BMI 29.2
[2017-08-03 15:16] VITALS: RESP 18; O2SAT 98
--- NOTE | 2017-08-03 16:07 | C.PDOC ---
History Of Present Illness 77 y/o female presents to ED sent by for Monzon catheter insertion. Patient has a neurogenic bladder and her monzon but fell out last night. Patient saw who instructed her to come to ED for Monzon insertion and UA. No other complaints at this time. (-) abd pain, (-) fever Time Seen by Provider: 08/03/17 15:36 Chief Complaint (Nursing): Female Genitourinary History Per: Patient History/Exam Limitations: no limitations Onset/Duration Of Symptoms: Days Current Symptoms Are (Timing): Still Present Quality Of Discomfort: "Pain" Past Medical History Reviewed: Historical Data, Nursing Documentation, Vital Signs Vital Signs: Last Vital Signs Temp 98 F 08/03/17 17:04 Pulse 77 08/03/17 17:04 Resp 18 08/03/17 17:04 BP 127/85 08/03/17 17:04 Pulse Ox 98 08/03/17 17:06 - Medical History PMH: Arthritis (MILD), Diabetes, HTN, Hypercholesterolemia, Chronic Kidney Disease ("STAGE 4" ON MED RECORD) Other PMH: neurogenic bladder Surgical History: No Surg Hx - [facility] Procedures ASSISTANCE WITH RESPIRATORY VENTILATION, <24 HRS, CPAP (11/11/15) CONTINUOUS INVASIVE MECHANICAL VENTILATION <96 CONSEC HRS (04/10/14) CYSTOMETROGRAM (03/25/15) CYSTOSCOPY NEC (03/25/15) EXCISION OF STOMACH, ENDO, DIAGN (11/11/15) INSERT INDWELLING CATH (04/11/15) INSERT INFUSION DEV IN R INT JUGULAR VEIN, PERC (11/11/15) INTRODUCE OTH ANTI-INFECT IN CENTRAL VEIN, PERC (11/11/15) TRANSFUSE NONAUT RED BLOOD CELLS IN PERIPH VEIN, PERC (11/11/15) ULTRASONOGRAPHY OF PERICARDIUM, TRANSESOPHAGEAL (11/11/15) Family History: States: No Known Family Hx - Social History Hx Tobacco Use: No Hx Alcohol Use: No Hx Substance Use: No - Immunization History Hx Tetanus Toxoid Vaccination: No Hx Influenza Vaccination: No Hx Pneumococcal Vaccination: No Review Of Systems Constitutional: Negative for: Fever, Chills Cardiovascular: Negative for: Chest Pain Respiratory: Negative for: Shortness of Breath Gastrointestinal: Negative for: Nausea, Vomiting Genitourinary: Positive for: Other (retention). Negative for: Dysuria, Hematuria Musculoskeletal: Negative for: Back Pain Skin: Negative for: Rash Physical Exam - Physical Exam Appears: Non-toxic, No Acute Distress Skin: Warm, Dry, No Rash Head: Atraumatic, Normacephalic Oral Mucosa: Moist Neck: Normal ROM, Supple Chest: Symmetrical Cardiovascular: Rhythm Regular Respiratory: Normal Breath Sounds, No Rales, No Rhonchi, No Wheezing Gastrointestinal/Abdominal: Soft, No Tenderness, No Guarding, No Rebound Back: No CVA Tenderness Extremity: Normal ROM Neurological/Psych: Oriented x3 Gait: Steady ED Course And Treatment - Laboratory Results Interpretation Of Abnormal: Urine (+) WBC, (+) bacteria O2 Sat by Pulse Oximetry: 98 (RA) Pulse Ox Interpretation: Normal Progress Note: Monzon catheter inserted without difficulty. treated with keflex 500 mg PO Reassessment Condition: Improved Medical Decision Making Medical Decision Making: At ED Patient is stating she has to urinate Plan: Monzon inserting, UA and discharge Disposition Counseled Patient/Family Regarding: Studies Performed, Diagnosis, Need For Followup, Rx Given - Disposition Referrals: Lorenzo Lyn MD [Staff Provider] - Disposition: HOME/ ROUTINE Disposition Time: 17:10 Condition: STABLE Additional Instructions: Follow up with PMD Return to ED if any increase symptoms Prescriptions: Cephalexin Susp [Keflex] 250 mg PO TID #21 ml Instructions: Acute Urinary Retention in Women (ED) Forms: [facility] (Arabic) - POA Present On Arrival: None - Clinical Impression Clinical Impression: Neurogenic bladder, Retention of urine - PA / GEOMAGNETIST / Resident Statement MD/DO has reviewed & agrees with the documentation as recorded. - Scribe Statement The provider has reviewed the documentation as recorded by the Antonino Escalante All medical record entries made by the Antonino were at my direction and personally dictated by me. I have reviewed the chart and agree that the record accurately reflects my personal performance of the history, physical exam, medical decision making, and the department course for this patient. I have also personally directed, reviewed, and agree with the discharge instructions and disposition.
[2017-08-03 16:24] LABS: RBC URINE 9 /hpf (0-3); TRANSITIONAL EPITHIAL 1 /hpf (0-3); URINE BACTERIA MANY (<OCC); URINE BILIRUBIN NEGATIVE (NEGATIVE); URINE BLOOD 1+ (NEGATIVE); URINE COLOR Yellow (YELLOW); URINE GLUCOSE (UA) 3+ mg/dL (Normal); URINE KETONE NEGATIVE (NEGATIVE); URINE LEUKOCYTE ESTERASE 3+ Leu/uL (Negative); URINE PROTEIN 1+ mg/dL (NEGATIVE); URINE UROBILINOGEN NORMAL mg/dL (0.2-1.0); WBC CLUMPS FEW /hpf; WBC URINE 240 /hpf (0-5)
[2017-08-03 17:08] VITALS: BP 127/85; PULSE 77; TEMP 98
== END 2017-08-03 17:04 | disposition home or self-care (01) ==
LOC: C.ER 15:11
DX: R33.9 Retention of urine, unspecified (principal); N31.9 Neuromuscular dysfunction of bladder, unspecified

== ENCOUNTER 2017-08-05 09:56 | Emergency (ER) | payer MEDICARE ==
[2017-08-05 10:11] VITALS: BMI 32.1
--- NOTE | 2017-08-05 10:58 | C.PDOC ---
Time Seen by Provider: 08/05/17 10:14 Chief Complaint (Nursing): Female Genitourinary Past Medical History Vital Signs: Last Vital Signs Temp 97.5 F L 08/05/17 10:11 Pulse 99 H 08/05/17 10:11 Resp 18 08/05/17 10:11 BP 123/83 08/05/17 10:11 Pulse Ox 99 08/05/17 10:11 - Medical History PMH: Arthritis (MILD), Diabetes, HTN, Hypercholesterolemia, Chronic Kidney Disease ("STAGE 4" ON MED RECORD) - [employer] Procedures ASSISTANCE WITH RESPIRATORY VENTILATION, <24 HRS, CPAP (11/11/15) CONTINUOUS INVASIVE MECHANICAL VENTILATION <96 CONSEC HRS (04/10/14) CYSTOMETROGRAM (03/25/15) CYSTOSCOPY NEC (03/25/15) EXCISION OF STOMACH, ENDO, DIAGN (11/11/15) INSERT INDWELLING CATH (04/11/15) INSERT INFUSION DEV IN R INT JUGULAR VEIN, PERC (11/11/15) INTRODUCE OTH ANTI-INFECT IN CENTRAL VEIN, PERC (11/11/15) TRANSFUSE NONAUT RED BLOOD CELLS IN PERIPH VEIN, PERC (11/11/15) ULTRASONOGRAPHY OF PERICARDIUM, TRANSESOPHAGEAL (11/11/15) Family History: States: Unknown Family Hx - Social History Hx Tobacco Use: No Hx Alcohol Use: No Hx Substance Use: No - Immunization History Hx Tetanus Toxoid Vaccination: No Hx Influenza Vaccination: No Hx Pneumococcal Vaccination: No ED Course And Treatment O2 Sat by Pulse Oximetry: 99 Disposition - Disposition Referrals: Arcenio Rosario MD [Staff Provider] - Disposition: HOME/ ROUTINE Disposition Time: 10:57 Condition: STABLE Additional Instructions: Vaya a wiggins mdico o la clnica en 2-5 remy sin falta, para mas evaluacin. [place] los medicamentos payton indicado. Volver a la venus de emergencia en cualquier momento si los sntomas persisten o empeoran. Instructions: Mckeon Catheter Placement and Care (ED) Print Language: SRI LANKAN
--- NOTE | 2017-08-05 10:58 | C.PDOC ---
History Of Present Illness 77 year old female, with PMHx of neurogenic bladder, presents to ED for monzon catheter insertion after her catheter fell out this morning. Notes that she is able to urinate but has urinary retention. Notes being seen here 2 days ago for similar episode and was started on antibiotics yesterday for a positive urine culture. Denies dysuria, hematuria, abdominal pain, or fever. Urologist: Dr. Zacarias Time Seen by Provider: 08/05/17 10:14 Chief Complaint (Nursing): Female Genitourinary History Per: Patient, Family History/Exam Limitations: no limitations Onset/Duration Of Symptoms: Hrs Current Symptoms Are (Timing): Still Present Severity: None Pain Scale Rating Of: 0 Associated Symptoms: denies: Fever, Chills, Nausea, Vomiting, Diarrhea, Loss Of Appetite, Back Pain, Urinary Symptoms Alleviating Factors: None Abnormal Vaginal Bleeding: No Past Medical History Reviewed: Historical Data, Nursing Documentation, Vital Signs Vital Signs: Last Vital Signs Temp 98.2 F 08/05/17 11:32 Pulse 88 08/05/17 11:32 Resp 16 08/05/17 11:32 BP 133/70 08/05/17 11:32 Pulse Ox 100 08/05/17 11:32 - Medical History PMH: Arthritis (MILD), Diabetes, HTN, Hypercholesterolemia, Chronic Kidney Disease ("STAGE 4" ON MED RECORD) - [employer] Procedures ASSISTANCE WITH RESPIRATORY VENTILATION, <24 HRS, CPAP (11/11/15) CONTINUOUS INVASIVE MECHANICAL VENTILATION <96 CONSEC HRS (04/10/14) CYSTOMETROGRAM (03/25/15) CYSTOSCOPY NEC (03/25/15) EXCISION OF STOMACH, ENDO, DIAGN (11/11/15) INSERT INDWELLING CATH (04/11/15) INSERT INFUSION DEV IN R INT JUGULAR VEIN, PERC (11/11/15) INTRODUCE OTH ANTI-INFECT IN CENTRAL VEIN, PERC (11/11/15) TRANSFUSE NONAUT RED BLOOD CELLS IN PERIPH VEIN, PERC (11/11/15) ULTRASONOGRAPHY OF PERICARDIUM, TRANSESOPHAGEAL (11/11/15) Family History: States: Unknown Family Hx - Social History Hx Tobacco Use: No Hx Alcohol Use: No Hx Substance Use: No - Immunization History Hx Tetanus Toxoid Vaccination: No Hx Influenza Vaccination: No Hx Pneumococcal Vaccination: No Review Of Systems Except As Marked, All Systems Reviewed And Found Negative. Constitutional: Negative for: Fever, Chills Cardiovascular: Negative for: Chest Pain Respiratory: Negative for: Shortness of Breath Gastrointestinal: Negative for: Nausea, Vomiting, Abdominal Pain, Diarrhea Genitourinary: Positive for: Other (urinary retention). Negative for: Dysuria, Hematuria, Vaginal Discharge Neurological: Negative for: Headache, Dizziness Physical Exam - Physical Exam Appears: Non-toxic, No Acute Distress Skin: Normal Color, Warm, Dry Head: Atraumatic, Normacephalic Eye(s): bilateral: Normal Inspection, EOMI Nose: Normal Oral Mucosa: Moist Neck: Normal ROM, Supple Chest: Symmetrical Cardiovascular: Rhythm Regular Respiratory: Normal Breath Sounds, No Accessory Muscle Use Gastrointestinal/Abdominal: Soft, No Tenderness Extremity: Normal ROM Neurological/Psych: Oriented x3, Normal Speech ED Course And Treatment O2 Sat by Pulse Oximetry: 99 (RA) Pulse Ox Interpretation: Normal Progress Note: Monzon catheter was inserted without difficulty. Urine culture evaluated from two days ago, PCN resistant. Will change keflex to macrobid. Patient is being discharged home with instructions to follow up with Dr. Zacarias for further evaluation. Case discussed with Dr Morales, agreed upon plan and treatment. Disposition - Disposition Referrals: Arcenio Rosario MD [Staff Provider] - Disposition: HOME/ ROUTINE Disposition Time: 10:57 Condition: STABLE Additional Instructions: Vaya a wiggins mdico o la clnica en 2-5 remy sin falta, para mas evaluacin. [place] los medicamentos payton indicado. Volver a la venus de emergencia en cualquier momento si los sntomas persisten o empeoran. Prescriptions: Nitrofurantoin Macrocrystals [Macrobid] 1 cap PO BID #14 cap Instructions: Monzon Catheter Placement and Care (ED) Forms: [employer] (Italian) Print Language: ESTONIAN - Clinical Impression Clinical Impression: UTI (urinary tract infection), Dislodged Monzon catheter - PA / LOGISTICS SYSTEM ENGINEER / Resident Statement MD/DO has reviewed & agrees with the documentation as recorded. - Scribe Statement The provider has reviewed the documentation as recorded by the Tainaibe Enoc Appiah All medical record entries made by the Scribe were at my direction and personally dictated by me. I have reviewed the chart and agree that the record accurately reflects my personal performance of the history, physical exam, medical decision making, and the department course for this patient. I have also personally directed, reviewed, and agree with the discharge instructions and disposition.
[2017-08-05 11:33] VITALS: BP 133/70; PULSE 88; RESP 16; TEMP 98.2
[2017-08-05 16:05] VITALS: O2SAT 99
== END 2017-08-05 11:32 | disposition home or self-care (01) ==
LOC: C.ER 09:56
DX: T83.021A Displacement of indwelling urethral catheter, initial encounter (principal); Y84.8 Other medical procedures as the cause of abnormal reaction of the patient, or of later complication, without mention of misadventure at the time of the procedure; N39.0 Urinary tract infection, site not specified

== ENCOUNTER 2017-09-01 14:13 | Emergency (ER) | payer MEDICARE ==
[2017-09-01 14:15] VITALS: BMI 32.1
--- NOTE | 2017-09-01 15:37 | C.PDOC ---
History Of Present Illness 77 yr old female with PMHx of bladder dysfunction with indwelling catheter for 1 year, presents to the ER for catheter reinsertion. Patient states yesterday while getting out of the car, she tugged on it and fell out. Patient reports she was able to urinate little amount but not full amount. Patient denies abdominal pain, dysuria, incontinence, weakness or numbness. Time Seen by Provider: 09/01/17 15:09 Chief Complaint (Nursing): Female Genitourinary History Per: Patient History/Exam Limitations: no limitations Onset/Duration Of Symptoms: Sudden Onset Past Medical History Reviewed: Historical Data, Nursing Documentation, Vital Signs Vital Signs: Last Vital Signs Temp 97.3 F L 09/01/17 14:28 Pulse 97 H 09/01/17 14:28 Resp 18 09/01/17 14:28 BP 147/83 09/01/17 14:28 Pulse Ox 99 09/01/17 15:41 - Medical History PMH: Arthritis (MILD), Diabetes, HTN, Hypercholesterolemia, Chronic Kidney Disease ("STAGE 4" ON MED RECORD) - [employer] Procedures ASSISTANCE WITH RESPIRATORY VENTILATION, <24 HRS, CPAP (11/11/15) CONTINUOUS INVASIVE MECHANICAL VENTILATION <96 CONSEC HRS (04/10/14) CYSTOMETROGRAM (03/25/15) CYSTOSCOPY NEC (03/25/15) EXCISION OF STOMACH, ENDO, DIAGN (11/11/15) INSERT INDWELLING CATH (04/11/15) INSERT INFUSION DEV IN R INT JUGULAR VEIN, PERC (11/11/15) INTRODUCE OTH ANTI-INFECT IN CENTRAL VEIN, PERC (11/11/15) TRANSFUSE NONAUT RED BLOOD CELLS IN PERIPH VEIN, PERC (11/11/15) ULTRASONOGRAPHY OF PERICARDIUM, TRANSESOPHAGEAL (11/11/15) Family History: States: No Known Family Hx - Social History Hx Tobacco Use: No Hx Alcohol Use: No Hx Substance Use: No - Immunization History Hx Tetanus Toxoid Vaccination: No Hx Influenza Vaccination: No Hx Pneumococcal Vaccination: No Review Of Systems Except As Marked, All Systems Reviewed And Found Negative. Gastrointestinal: Negative for: Abdominal Pain Genitourinary: Negative for: Dysuria, Incontinence Neurological: Negative for: Weakness, Numbness Physical Exam - Physical Exam Appears: Non-toxic, No Acute Distress Skin: Warm, Dry, No Rash Head: Atraumatic, Normacephalic Oral Mucosa: Moist Cardiovascular: Rhythm Regular, No Murmur Respiratory: Normal Breath Sounds, No Rales, No Rhonchi, No Stridor, No Wheezing Gastrointestinal/Abdominal: Normal Exam, Soft, No Tenderness, No Guarding, No Rebound Extremity: Normal ROM, No Swelling Neurological/Psych: Oriented x3, Normal Speech, Normal Motor ED Course And Treatment O2 Sat by Pulse Oximetry: 99 (RA) Pulse Ox Interpretation: Normal Medical Decision Making Medical Decision Making: IMPRESSION: Urinary retention PLAN: * Reinsert catheter Disposition - Disposition Referrals: Arcenio Rosario MD [Staff Provider] - Disposition: HOME/ ROUTINE Disposition Time: 15:56 Condition: STABLE Additional Instructions: follow up with your urologist in 2 days call to make an appointment return to hospital if symptoms worsens or progress continue your home medications as prescribed Instructions: Mckeon Catheter Placement and Care (ED) Forms: [facility] (Greenlandic), General Discharge Instructions - Clinical Impression Clinical Impression: Encounter for Mckeon catheter replacement - Scribe Statement The provider has reviewed the documentation as recorded by the Tainaibchristy Ojeda Provider Attestation: All medical record entries made by the Antonino were at my direction and personally dictated by me. I have reviewed the chart and agree that the record accurately reflects my personal performance of the history, physical exam, medical decision making, and the department course for this patient. I have also personally directed, reviewed, and agree with the discharge instructions and disposition.
[2017-09-01 16:22] VITALS: BP 151/87; PULSE 98; RESP 20; TEMP 97.5; O2SAT 97
== END 2017-09-01 16:24 | disposition home or self-care (01) ==
LOC: C.ER 14:13
DX: Z46.6 Encounter for fitting and adjustment of urinary device (principal); E78.00 Pure hypercholesterolemia, unspecified; I12.9 Hypertensive chronic kidney disease with stage 1 through stage 4 chronic kidney disease, or unspecified chronic kidney disease; N18.4 Chronic kidney disease, stage 4 (severe); E11.9 Type 2 diabetes mellitus without complications

== ENCOUNTER 2017-09-12 13:43 | Emergency (ER) | payer MEDICARE ==
[2017-09-12 13:44] VITALS: BMI 32.1
[2017-09-12 14:14] VITALS: RESP 18; TEMP 98
--- NOTE | 2017-09-12 14:30 | C.PDOC ---
History Of Present Illness 77 yr old female with PMHx of bladder dysfunction with indwelling catheter for 1 year, presents to the ER for catheter reinsertion. As per son who is at bedside 3 days ago patient had bowel movement and when using bathroom Monzon fell out. Patient is urinating but feels not full emptying. No dysuria, urinary frequency, abdominal pain. Sees urologist every 3 months for monzon change. No other complaints at this time. Time Seen by Provider: 09/12/17 14:29 Chief Complaint (Nursing): Female Genitourinary History Per: Patient, Family History/Exam Limitations: no limitations Onset/Duration Of Symptoms: Days Current Symptoms Are (Timing): Still Present Past Medical History Reviewed: Historical Data, Nursing Documentation, Vital Signs Vital Signs: Last Vital Signs Temp 98 F 09/12/17 14:10 Pulse 72 09/12/17 16:04 Resp 18 09/12/17 16:04 BP 126/79 09/12/17 16:04 Pulse Ox 98 09/12/17 16:04 - Medical History PMH: Arthritis (MILD), Diabetes, HTN, Hypercholesterolemia, Chronic Kidney Disease ("STAGE 4" ON MED RECORD) Surgical History: No Surg Hx - [facility] Procedures ASSISTANCE WITH RESPIRATORY VENTILATION, <24 HRS, CPAP (11/11/15) CONTINUOUS INVASIVE MECHANICAL VENTILATION <96 CONSEC HRS (04/10/14) CYSTOMETROGRAM (03/25/15) CYSTOSCOPY NEC (03/25/15) EXCISION OF STOMACH, ENDO, DIAGN (11/11/15) INSERT INDWELLING CATH (04/11/15) INSERT INFUSION DEV IN R INT JUGULAR VEIN, PERC (11/11/15) INTRODUCE OTH ANTI-INFECT IN CENTRAL VEIN, PERC (11/11/15) TRANSFUSE NONAUT RED BLOOD CELLS IN PERIPH VEIN, PERC (11/11/15) ULTRASONOGRAPHY OF PERICARDIUM, TRANSESOPHAGEAL (11/11/15) Family History: States: No Known Family Hx - Social History Hx Tobacco Use: No Hx Alcohol Use: No Hx Substance Use: No - Immunization History Hx Tetanus Toxoid Vaccination: No Hx Influenza Vaccination: No Hx Pneumococcal Vaccination: No Review Of Systems Constitutional: Negative for: Fever, Chills Gastrointestinal: Negative for: Nausea, Vomiting Genitourinary: Positive for: Incontinence Skin: Negative for: Rash Physical Exam - Physical Exam Appears: Non-toxic, No Acute Distress Skin: Warm, Dry Head: Atraumatic, Normacephalic Eye(s): bilateral: Normal Inspection, EOMI Nose: Normal Oral Mucosa: Moist Throat: Normal Neck: Supple Chest: Symmetrical Cardiovascular: Rhythm Regular Respiratory: Normal Breath Sounds, No Rales, No Rhonchi, No Wheezing Gastrointestinal/Abdominal: Soft, No Tenderness, Hernia (Umbilical ) Back: No CVA Tenderness Extremity: Normal ROM, Capillary Refill (<2 seconds) Neurological/Psych: Oriented x3 ED Course And Treatment O2 Sat by Pulse Oximetry: 99 (RA) Pulse Ox Interpretation: Normal Progress Note: Monzon catheter inserted by RN . Leg bag placed. Instructed to follow up with the Dr Rosario in 1-2 days. Disposition - Disposition Referrals: Arcenio Rosario MD [Staff Provider] - Disposition: HOME/ ROUTINE Disposition Time: 14:50 Condition: STABLE Additional Instructions: Vaya a wiggins mdico o la clnica en 1-3 remy sin falta, para mas evaluacin. [place] los medicamentos payton indicado. Volver a la venus de emergencia en cualquier momento si los sntomas persisten o empeoran. Prescriptions: Nitrofurantoin Macrocrystals [Macrobid] 1 cap PO BID #14 cap Instructions: Acute Urinary Retention in Women (ED) Forms: [facility] (Uzbek) Print Language: BURKINAN - Clinical Impression Clinical Impression: UTI (urinary tract infection), Dislodged Monzon catheter - PA / ANODE BUILDER / Resident Statement MD/DO has reviewed & agrees with the documentation as recorded. - Scribe Statement The provider has reviewed the documentation as recorded by the Scribchristy Escalante All medical record entries made by the Scribchristy were at my direction and personally dictated by me. I have reviewed the chart and agree that the record accurately reflects my personal performance of the history, physical exam, medical decision making, and the department course for this patient. I have also personally directed, reviewed, and agree with the discharge instructions and disposition.
[2017-09-12 15:17] LABS: RBC URINE 9 /hpf (0-3); URINE BACTERIA RARE (<OCC); URINE BILIRUBIN NEGATIVE (NEGATIVE); URINE BLOOD 1+ (NEGATIVE); URINE COLOR Straw (YELLOW); URINE GLUCOSE (UA) 3+ mg/dL (Normal); URINE KETONE NEGATIVE (NEGATIVE); URINE LEUKOCYTE ESTERASE 1+ Leu/uL (Negative); URINE PROTEIN 1+ mg/dL (NEGATIVE); URINE UROBILINOGEN NORMAL mg/dL (0.2-1.0); WBC URINE 34 /hpf (0-5)
[2017-09-12 16:04] VITALS: BP 126/79; PULSE 72
[2017-09-12 16:18] VITALS: O2SAT 99
== END 2017-09-12 16:05 | disposition home or self-care (01) ==
LOC: C.ER 13:43
DX: Z46.6 Encounter for fitting and adjustment of urinary device (principal); N39.0 Urinary tract infection, site not specified

== ENCOUNTER 2017-10-03 12:40 | Emergency (ER) | payer MEDICARE ==
[2017-10-03 12:41] VITALS: BMI 32.1
[2017-10-03 14:44] LABS: RBC URINE 14 /hpf (0-3); URINE BACTERIA RARE (<OCC); URINE BILIRUBIN NEGATIVE (NEGATIVE); URINE BLOOD 2+ (NEGATIVE); URINE COLOR Straw (YELLOW); URINE GLUCOSE (UA) 3+ mg/dL (Normal); URINE KETONE NEGATIVE (NEGATIVE); URINE LEUKOCYTE ESTERASE 2+ Leu/uL (Negative); URINE PROTEIN 1+ mg/dL (NEGATIVE); URINE UROBILINOGEN NORMAL mg/dL (0.2-1.0); WBC URINE 40 /hpf (0-5)
--- NOTE | 2017-10-03 15:04 | C.PDOC ---
History Of Present Illness Pt is here because her indwelling Mckeon catheter fell out this morning. Time Seen by Provider: 10/03/17 13:07 Chief Complaint (Nursing): Female Genitourinary History Per: Patient, Family Onset/Duration Of Symptoms: Hrs (this morning) Current Symptoms Are (Timing): Still Present Severity: Mild Additional History Per: Prior Records Past Medical History Reviewed: Historical Data, Nursing Documentation, Vital Signs Vital Signs: Last Vital Signs Temp 97.1 F L 10/03/17 12:55 Pulse 95 H 10/03/17 12:55 Resp 15 10/03/17 12:55 BP 115/78 10/03/17 12:55 Pulse Ox 100 10/03/17 12:55 - Medical History PMH: Arthritis (MILD), Diabetes, HTN, Hypercholesterolemia, Chronic Kidney Disease ("STAGE 4" ON MED RECORD) - [employer] Procedures ASSISTANCE WITH RESPIRATORY VENTILATION, <24 HRS, CPAP (11/11/15) CONTINUOUS INVASIVE MECHANICAL VENTILATION <96 CONSEC HRS (04/10/14) CYSTOMETROGRAM (03/25/15) CYSTOSCOPY NEC (03/25/15) EXCISION OF STOMACH, ENDO, DIAGN (11/11/15) INSERT INDWELLING CATH (04/11/15) INSERT INFUSION DEV IN R INT JUGULAR VEIN, PERC (11/11/15) INTRODUCE OTH ANTI-INFECT IN CENTRAL VEIN, PERC (11/11/15) TRANSFUSE NONAUT RED BLOOD CELLS IN PERIPH VEIN, PERC (11/11/15) ULTRASONOGRAPHY OF PERICARDIUM, TRANSESOPHAGEAL (11/11/15) Family History: States: Unknown Family Hx - Social History Hx Tobacco Use: No Hx Alcohol Use: No Hx Substance Use: No - Immunization History Hx Tetanus Toxoid Vaccination: No Hx Influenza Vaccination: Yes Hx Pneumococcal Vaccination: Yes Review Of Systems Except As Marked, All Systems Reviewed And Found Negative. Constitutional: Negative for: Fever, Weakness Cardiovascular: Negative for: Chest Pain Respiratory: Negative for: Shortness of Breath Gastrointestinal: Negative for: Vomiting, Abdominal Pain Musculoskeletal: Negative for: Back Pain Skin: Negative for: Rash Neurological: Negative for: Weakness, Numbness Physical Exam - Physical Exam Appears: Non-toxic, No Acute Distress, Chronically Ill Skin: Normal Color, Warm, Dry Head: Atraumatic, Normacephalic Eye(s): bilateral: PERRL, EOMI Neck: Normal ROM, Supple Cardiovascular: Rhythm Regular Respiratory: Normal Breath Sounds, No Accessory Muscle Use Gastrointestinal/Abdominal: Soft, No Tenderness Back: No CVA Tenderness Extremity: Normal ROM Neurological/Psych: Oriented x3, Normal Motor ED Course And Treatment - Laboratory Results Interpretation Of Abnormal: Possibe UTI, urine C&S sent. O2 Sat by Pulse Oximetry: 100 Pulse Ox Interpretation: Normal Progress Note: New Mckeon catheter was placed by RN. Reassessment Condition: Improved Disposition Counseled Patient/Family Regarding: Studies Performed, Diagnosis, Need For Followup, Rx Given - Disposition Referrals: Lorenzo Lyn MD [Staff Provider] - Arcenio Rosario MD [Staff Provider] - Disposition: HOME/ ROUTINE Disposition Time: 15:05 Condition: IMPROVED Additional Instructions: Follow up with your doctor this week. Return to the ER if you develop fever, chills, abdominal pain, back pain, problem with urine, worsening of symptoms or if you have any other concerns. Prescriptions: Cephalexin [cephalexin] 500 mg PO QID #28 cap Instructions: Mckeon Catheter Placement and Care (ED) - Clinical Impression Clinical Impression: Dislodged Mckeon catheter, Encounter for Mckeon catheter replacement, UTI ( urinary tract infection)
[2017-10-03 15:34] VITALS: BP 156/81; PULSE 60; RESP 20; TEMP 98.1; O2SAT 98
== END 2017-10-03 15:26 | disposition home or self-care (01) ==
LOC: C.ER 12:40
DX: T83.021A Displacement of indwelling urethral catheter, initial encounter (principal); Y84.8 Other medical procedures as the cause of abnormal reaction of the patient, or of later complication, without mention of misadventure at the time of the procedure; N39.0 Urinary tract infection, site not specified; E78.00 Pure hypercholesterolemia, unspecified; I12.9 Hypertensive chronic kidney disease with stage 1 through stage 4 chronic kidney disease, or unspecified chronic kidney disease; N18.4 Chronic kidney disease, stage 4 (severe)

== ENCOUNTER 2017-10-19 11:36 | Emergency (ER) | payer MEDICARE ==
[2017-10-19 11:51] VITALS: BMI 28.3
[2017-10-19 11:57] VITALS: BP 127/85; PULSE 100; RESP 20; TEMP 98.4; O2SAT 100
--- NOTE | 2017-10-19 12:16 | C.PDOC ---
History Of Present Illness 77 year old female, with history of chronic indwelling monzon catheter, presents to the ED requesting monzon replacement. Patient states she accidentally pulled the monzon out while cleaning her house around 5 days ago. Patient denies trouble with urination or pain at this time. Time Seen by Provider: 10/19/17 11:50 Chief Complaint (Nursing): Female Genitourinary History Per: Patient History/Exam Limitations: no limitations Onset/Duration Of Symptoms: Days Current Symptoms Are (Timing): Still Present Quality Of Discomfort: denies: "Pain" Associated Symptoms: denies: Urinary Symptoms Additional History Per: Patient Abnormal Vaginal Bleeding: No Past Medical History Reviewed: Historical Data, Nursing Documentation, Vital Signs Vital Signs: Last Vital Signs Temp 98.4 F 10/19/17 11:56 Pulse 100 H 10/19/17 11:56 Resp 20 10/19/17 11:56 BP 127/85 10/19/17 11:56 Pulse Ox 100 10/19/17 12:19 - Medical History PMH: Arthritis (MILD), Diabetes, HTN, Hypercholesterolemia, Chronic Kidney Disease ("STAGE 4" ON MED RECORD) Surgical History: No Surg Hx - [facility] Procedures ASSISTANCE WITH RESPIRATORY VENTILATION, <24 HRS, CPAP (11/11/15) CONTINUOUS INVASIVE MECHANICAL VENTILATION <96 CONSEC HRS (04/10/14) CYSTOMETROGRAM (03/25/15) CYSTOSCOPY NEC (03/25/15) EXCISION OF STOMACH, ENDO, DIAGN (11/11/15) INSERT INDWELLING CATH (04/11/15) INSERT INFUSION DEV IN R INT JUGULAR VEIN, PERC (11/11/15) INTRODUCE OTH ANTI-INFECT IN CENTRAL VEIN, PERC (11/11/15) TRANSFUSE NONAUT RED BLOOD CELLS IN PERIPH VEIN, PERC (11/11/15) ULTRASONOGRAPHY OF PERICARDIUM, TRANSESOPHAGEAL (11/11/15) Family History: States: Unknown Family Hx - Social History Hx Tobacco Use: No Hx Alcohol Use: No Hx Substance Use: No - Immunization History Hx Tetanus Toxoid Vaccination: No Hx Influenza Vaccination: Yes Hx Pneumococcal Vaccination: Yes Review Of Systems Genitourinary: Positive for: Other (requesting monzon insertion ). Negative for : Dysuria Physical Exam - Physical Exam Appears: Non-toxic, No Acute Distress Skin: Normal Color, Warm, Dry Oral Mucosa: Moist Chest: Symmetrical, No Deformity, No Tenderness Cardiovascular: Rhythm Regular, No Murmur Respiratory: Normal Breath Sounds, No Rales, No Rhonchi, No Wheezing Gastrointestinal/Abdominal: Soft, No Tenderness Extremity: Normal ROM, Capillary Refill (less than 2 seconds ) Neurological/Psych: Oriented x3, Normal Speech, Normal Cognition ED Course And Treatment O2 Sat by Pulse Oximetry: 100 (on RA) Pulse Ox Interpretation: Normal Medical Decision Making Medical Decision Making: Progress: Monzon catheter inserted by RN. Patient tolerated well with no complaints. Disposition - Disposition Disposition: HOME/ ROUTINE Disposition Time: 12:30 Condition: STABLE Additional Instructions: return to er with worsening symptoms or concerns. please see your urologist. Instructions: Monzon Catheter Placement and Care (ED), Urinary Leg Bag (GEN) Forms: [employer] [facility] (Japanese) - Clinical Impression Clinical Impression: Dislodged Monzon catheter - Scribe Statement The provider has reviewed the documentation as recorded by the Scribe (Connie Appiah) Provider Attestation: All medical record entries made by the Scribe were at my direction and personally dictated by me. I have reviewed the chart and agree that the record accurately reflects my personal performance of the history, physical exam, medical decision making, and the department course for this patient. I have also personally directed, reviewed, and agree with the discharge instructions and disposition.
== END 2017-10-19 12:37 | disposition home or self-care (01) ==
LOC: C.ER 11:36
DX: T83.021A Displacement of indwelling urethral catheter, initial encounter (principal); E78.00 Pure hypercholesterolemia, unspecified; I12.9 Hypertensive chronic kidney disease with stage 1 through stage 4 chronic kidney disease, or unspecified chronic kidney disease; N18.4 Chronic kidney disease, stage 4 (severe)

== ENCOUNTER 2017-12-23 10:59 | Emergency (ER) | payer MEDICARE ==
[2017-12-23 11:00] VITALS: BMI 28.3
[2017-12-23 11:14] VITALS: TEMP 97.5; O2SAT 99
[2017-12-23 13:22] LABS: BASO # 0.1 K/uL (0.0-0.2); BASO % 0.8 % (0.0-2.0); EOS # 0.2 K/uL (0.0-0.7); EOS % 2.1 % (0.0-4.0); HEMOGLOBIN 10.5 g/dL (11.0-16.0); LYMPH # 1.8 K/uL (1.0-4.3); LYMPH % 19.9 % (20.0-40.0); MEAN CELL VOLUME 86.7 fL (81.0-99.0); MEAN CORPUSCULAR HEMOGLOBIN 28.9 pg (27.0-31.0); MEAN CORPUSCULAR HGB CONC 33.4 g/dL (33.0-37.0); MEAN PLATELET VOLUME 7.3 fL (7.2-11.7); MONO # 0.5 K/uL (0.0-0.8); MONO % 5.5 % (0.0-10.0); NEUT # 6.6 K/uL (1.8-7.0); NEUT % 71.7 % (50.0-75.0); NRBC % 0.1 % (0.0-2.0); RBC 3.64 Mil/uL (3.80-5.20); RED CELL DISTRIBUTION WIDTH 15.1 % (11.5-14.5); WHITE BLOOD COUNT 9.3 K/uL (4.8-10.8)
--- NOTE | 2017-12-23 13:55 | C.PDOC ---
History Of Present Illness Patient is a 77 year old female sent to the ER from urologists office for a new catheter. States they did not have the right size monzon in the office. Patient is also complaining of generalized weakness and requests a blood transfusion. Denies having bleeding of any sort. Time Seen by Provider: 12/23/17 12:25 Chief Complaint (Nursing): Abnormal Labs History Per: Patient History/Exam Limitations: no limitations Onset/Duration Of Symptoms: Days Current Symptoms Are (Timing): Still Present Past Medical History Reviewed: Historical Data, Nursing Documentation, Vital Signs Vital Signs: Last Vital Signs Temp 97.5 F L 12/23/17 11:07 Pulse 100 H 12/23/17 14:25 Resp 20 12/23/17 14:25 BP 170/70 H 12/23/17 14:25 Pulse Ox 99 12/23/17 14:48 - Medical History PMH: Anemia, Arthritis (MILD), Diabetes, Gastrointestinal Ulcer, HTN, Hypercholesterolemia, Chronic Kidney Disease ("STAGE 4" ON MED RECORD) - [email or web address] Procedures ASSISTANCE WITH RESPIRATORY VENTILATION, <24 HRS, CPAP (11/11/15) CONTINUOUS INVASIVE MECHANICAL VENTILATION <96 CONSEC HRS (04/10/14) CYSTOMETROGRAM (03/25/15) CYSTOSCOPY NEC (03/25/15) EXCISION OF STOMACH, ENDO, DIAGN (11/11/15) INSERT INDWELLING CATH (04/11/15) INSERT INFUSION DEV IN R INT JUGULAR VEIN, PERC (11/11/15) INTRODUCE OTH ANTI-INFECT IN CENTRAL VEIN, PERC (11/11/15) TRANSFUSE NONAUT RED BLOOD CELLS IN PERIPH VEIN, PERC (11/11/15) ULTRASONOGRAPHY OF PERICARDIUM, TRANSESOPHAGEAL (11/11/15) Family History: States: No Known Family Hx - Social History Hx Tobacco Use: No Hx Alcohol Use: No Hx Substance Use: No - Immunization History Hx Tetanus Toxoid Vaccination: No Hx Influenza Vaccination: Yes Hx Pneumococcal Vaccination: Yes Review Of Systems Constitutional: Negative for: Fever, Chills Cardiovascular: Negative for: Chest Pain Respiratory: Negative for: Shortness of Breath Gastrointestinal: Negative for: Other (rectal bleeding) Genitourinary: Negative for: Vaginal Bleeding Neurological: Positive for: Weakness (generalized) Physical Exam - Physical Exam Appears: No Acute Distress Skin: No Rash Head: Atraumatic, Normacephalic Eye(s): bilateral: PERRL, EOMI Oral Mucosa: Moist Neck: Supple Chest: No Tenderness Cardiovascular: Rhythm Regular, No Murmur Respiratory: No Rales, No Rhonchi, No Wheezing, Other (clear to auscultation) Gastrointestinal/Abdominal: Soft, No Tenderness, No Distention Back: No CVA Tenderness Extremity: No Calf Tenderness, No Swelling Neurological/Psych: Oriented x3, Normal Speech ED Course And Treatment - Laboratory Results Result Diagrams: 12/23/17 13:14 12/23/17 13:14 O2 Sat by Pulse Oximetry: 99 (RA) Pulse Ox Interpretation: Normal Medical Decision Making Medical Decision Makin:48 Discussed w/ Dr. Lyn, and pt had hemoglobin at 10.8 two weeks ago in the office. Requests new CBC and BMP. Plan: Will change monzon and obtain labs. 215 pm discussed pt and labwork with Dr Lyn, pt may go home. Monzon catheter was changed. bpt's bp elevated here, has not yet takine her daily bp meds- will take on arrival home. Disposition Discussed With .: Lorenzo Lyn Doctor Will See Patient In The: Office Counseled Patient/Family Regarding: Diagnosis, Need For Followup, Rx Given - Disposition Referrals: Lorenzo Lyn MD [Staff Provider] - Disposition: HOME/ ROUTINE Disposition Time: 14:46 Condition: GOOD Additional Instructions: Follow up wiht Dr Lyn in the next week or so, Return to ER for any worse symptoms. 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 - Scribe Statement The provider has reviewed the documentation as recorded by the Scribe (Harper Velasquez) All medical record entries made by the Scribe were at my direction and personally dictated by me. I have reviewed the chart and agree that the record accurately reflects my personal performance of the history, physical exam, medical decision making, and the department course for this patient. I have also personally directed, reviewed, and agree with the discharge instructions and disposition.
[2017-12-23 14:26] VITALS: BP 170/70; PULSE 100; RESP 20
== END 2017-12-23 15:07 | disposition home or self-care (01) ==
LOC: C.ER 10:59
DX: I12.9 Hypertensive chronic kidney disease with stage 1 through stage 4 chronic kidney disease, or unspecified chronic kidney disease (principal); N18.4 Chronic kidney disease, stage 4 (severe); Z46.6 Encounter for fitting and adjustment of urinary device; E78.00 Pure hypercholesterolemia, unspecified

== ENCOUNTER 2018-01-25 11:24 | Emergency (ER) | payer MEDICARE ==
[2018-01-25 11:27] VITALS: BMI 28.3
[2018-01-25 11:33] VITALS: TEMP 98.1
--- NOTE | 2018-01-25 12:48 | C.PDOC ---
History Of Present Illness 77 y/o female presents to the ED requesting Monzon catheter be replaced. Patient has had a monzon for "some time" now. States she accidentally pulled it out last week and has been trying to get in touch with urologist without success. Patient states she is able to urinate, but has a tendency to retain urine. No dysuria, hematuria, fever, or chills. Time Seen by Provider: 01/25/18 12:16 Chief Complaint (Nursing): Female Genitourinary History Per: Patient History/Exam Limitations: no limitations Onset/Duration Of Symptoms: Days Current Symptoms Are (Timing): Still Present Past Medical History Reviewed: Historical Data, Nursing Documentation, Vital Signs Vital Signs: Last Vital Signs Temp 98.1 F 01/25/18 11:40 Pulse 78 01/25/18 13:32 Resp 16 01/25/18 13:32 BP 166/85 H 01/25/18 13:32 Pulse Ox 99 01/25/18 13:32 - Medical History PMH: Anemia, Arthritis (MILD), Diabetes, Gastrointestinal Ulcer, HTN, Hypercholesterolemia, Chronic Kidney Disease ("STAGE 4" ON MED RECORD) Other Surgeries: Cyst removal - N[facility] Procedures ASSISTANCE WITH RESPIRATORY VENTILATION, <24 HRS, CPAP (11/11/15) CONTINUOUS INVASIVE MECHANICAL VENTILATION <96 CONSEC HRS (04/10/14) CYSTOMETROGRAM (03/25/15) CYSTOSCOPY NEC (03/25/15) EXCISION OF STOMACH, ENDO, DIAGN (11/11/15) INSERT INDWELLING CATH (04/11/15) INSERT INFUSION DEV IN R INT JUGULAR VEIN, PERC (11/11/15) INTRODUCE OTH ANTI-INFECT IN CENTRAL VEIN, PERC (11/11/15) TRANSFUSE NONAUT RED BLOOD CELLS IN PERIPH VEIN, PERC (11/11/15) ULTRASONOGRAPHY OF PERICARDIUM, TRANSESOPHAGEAL (11/11/15) Family History: States: Unknown Family Hx - Social History Hx Tobacco Use: No Hx Alcohol Use: No Hx Substance Use: No - Immunization History Hx Tetanus Toxoid Vaccination: No Hx Influenza Vaccination: Yes Hx Pneumococcal Vaccination: Yes Review Of Systems Constitutional: Negative for: Fever, Chills Genitourinary: Positive for: Other (Monzon catheter needs replacement). Negative for: Dysuria, Incontinence, Hematuria Physical Exam - Physical Exam Appears: Non-toxic, No Acute Distress Skin: Normal Color, Warm, Dry, No Rash Head: Atraumatic, Normacephalic Eye(s): bilateral: Normal Inspection Oral Mucosa: Moist Neck: Normal ROM Cardiovascular: Rhythm Regular, No Murmur Respiratory: Normal Breath Sounds, No Rales, No Rhonchi, No Wheezing Gastrointestinal/Abdominal: Soft, No Tenderness, No Distention Extremity: Bilateral: Atraumatic, Normal ROM Neurological/Psych: Oriented x3, Normal Speech ED Course And Treatment O2 Sat by Pulse Oximetry: 100 (RA) Pulse Ox Interpretation: Normal Medical Decision Making Medical Decision Making: Plan: * UA and culture ordered * Monzon catheter placed in the ED Patient is medically stable for discharge home. Advised to follow up with urologist for further evaluation. There is agreement to discharge plan. Disposition Counseled Patient/Family Regarding: Studies Performed, Diagnosis, Need For Followup, Rx Given - Disposition Referrals: [facility] [Outside] [facility] [Outside] Disposition: HOME/ ROUTINE Disposition Time: 13:30 Condition: STABLE Additional Instructions: Follow up with your urologist Prescriptions: Nitrofurantoin Macrocrystals [Macrobid] 1 cap PO BID #14 cap Instructions: How to Care for Your Monzon Catheter, Female Forms: [employer] (Icelandic) - POA Present On Arrival: None - Clinical Impression Clinical Impression: UTI (urinary tract infection), Monzon catheter in place - PA / RESEARCH ATTORNEY / Resident Statement MD/DO has reviewed & agrees with the documentation as recorded. - Scribe Statement The provider has reviewed the documentation as recorded by the Scribe (Harper Velasquez) All medical record entries made by the Scribe were at my direction and personally dictated by me. I have reviewed the chart and agree that the record accurately reflects my personal performance of the history, physical exam, medical decision making, and the department course for this patient. I have also personally directed, reviewed, and agree with the discharge instructions and disposition.
[2018-01-25 13:05] LABS: URINE AMORPHOUS SEDIMENT RARE /ul (<OCC); URINE BACTERIA RARE (<OCC); URINE BILIRUBIN NEGATIVE (NEGATIVE); URINE BLOOD 1+ (NEGATIVE); URINE CLARITY Hazy (Clear); URINE COLOR Red (YELLOW); URINE GLUCOSE (UA) 3+ mg/dL (Normal); URINE LEUKOCYTE ESTERASE 3+ Leu/uL (Negative); URINE PROTEIN 2+ mg/dL (NEGATIVE); URINE UROBILINOGEN NORMAL mg/dL (0.2-1.0); WBC CLUMPS FEW /hpf
[2018-01-25 13:33] VITALS: BP 166/85; PULSE 78; RESP 16
[2018-01-25 18:26] VITALS: O2SAT 100
== END 2018-01-25 13:46 | disposition home or self-care (01) ==
LOC: C.ER 11:24
DX: Z46.6 Encounter for fitting and adjustment of urinary device (principal); N39.0 Urinary tract infection, site not specified

== ENCOUNTER 2018-03-28 12:37 | Emergency (ER) | payer MEDICARE ==
[2018-03-28 13:05] VITALS: BMI 21.9
--- NOTE | 2018-03-28 14:11 | C.PDOC ---
History Of Present Illness 77 y/o female presents to the ED requesting Monzon catheter be replaced. Patient has had a monzon for over a year. States monzon accidentally fell out last night. Patient tried to get in touch with urologist Dr Rosario who is unable to see her for another 3 days. Patient states she is able to urinate, but has a tendency to retain urine. No dysuria, hematuria, fever, or chills. Time Seen by Provider: 03/28/18 13:44 Chief Complaint (Nursing): Female Genitourinary History Per: Patient History/Exam Limitations: no limitations Associated Symptoms: Urinary Symptoms (urinary retention) Additional History Per: Patient Abnormal Vaginal Bleeding: No Past Medical History Reviewed: Historical Data, Nursing Documentation, Vital Signs Vital Signs: Last Vital Signs Temp 98.6 F 03/28/18 18:01 Pulse 98 H 03/28/18 18:01 Resp 20 03/28/18 18:01 BP 140/86 03/28/18 18:01 Pulse Ox 96 03/28/18 18:01 - Medical History PMH: Anemia, Arthritis (MILD), Diabetes, Gastrointestinal Ulcer, HTN, Hypercholesterolemia, Chronic Kidney Disease ("STAGE 4" ON MED RECORD) Surgical History: No Surg Hx - [facility] Procedures ASSISTANCE WITH RESPIRATORY VENTILATION, <24 HRS, CPAP (11/11/15) CONTINUOUS INVASIVE MECHANICAL VENTILATION <96 CONSEC HRS (04/10/14) CYSTOMETROGRAM (03/25/15) CYSTOSCOPY NEC (03/25/15) EXCISION OF STOMACH, ENDO, DIAGN (11/11/15) INSERT INDWELLING CATH (04/11/15) INSERT INFUSION DEV IN R INT JUGULAR VEIN, PERC (11/11/15) INTRODUCE OTH ANTI-INFECT IN CENTRAL VEIN, PERC (11/11/15) TRANSFUSE NONAUT RED BLOOD CELLS IN PERIPH VEIN, PERC (11/11/15) ULTRASONOGRAPHY OF PERICARDIUM, TRANSESOPHAGEAL (11/11/15) Family History: States: No Known Family Hx, Unknown Family Hx - Social History Hx Tobacco Use: No Hx Alcohol Use: No Hx Substance Use: No - Immunization History Hx Tetanus Toxoid Vaccination: No Hx Influenza Vaccination: Yes Hx Pneumococcal Vaccination: Yes Review Of Systems Except As Marked, All Systems Reviewed And Found Negative. Constitutional: Negative for: Fever, Chills Genitourinary: Negative for: Dysuria, Hematuria Physical Exam - Physical Exam Appears: Non-toxic, No Acute Distress Skin: Normal Color, Warm, Dry Head: Atraumatic, Normacephalic Eye(s): bilateral: Normal Inspection Neck: Normal ROM, Supple Chest: Symmetrical Cardiovascular: Rhythm Regular Respiratory: Normal Breath Sounds Gastrointestinal/Abdominal: Normal Exam, Soft, No Tenderness, No Distention, No Guarding Back: Normal Inspection, No CVA Tenderness Extremity: Normal ROM, No Pedal Edema Neurological/Psych: Oriented x3, Normal Speech ED Course And Treatment O2 Sat by Pulse Oximetry: 99 Medical Decision Making Medical Decision Making: Impression: Monzon change Plan: Bladder scan UA ordered Monzon catheter placed in the ED by RN Progress: 1457 Bladder scan shows 444cc of urine Monzon inserted by NICOLE Samayoa with 700cc clear urine residual Leg bag placed. Patient remained afebrile in no acute distress. She is stable for discharge and feels comfortable going home. Will be discharged and instructed to follow up with urologist Disposition Counseled Patient/Family Regarding: Diagnosis, Need For Followup - Disposition Referrals: Arcenio Rosario MD [Staff Provider] - Disposition: HOME/ ROUTINE Disposition Time: 16:00 Condition: GOOD Additional Instructions: Follow up with your urologist Instructions: How to Care for Your Monzon Catheter, Female Forms: [employer] (Nepalese) - POA Present On Arrival: None - Clinical Impression Clinical Impression: Encounter for Monzon catheter replacement - PA / PUMPER HAND / Resident Statement MD/DO has reviewed & agrees with the documentation as recorded. - Scribe Statement The provider has reviewed the documentation as recorded by the Scribe (Tara Chen) All medical record entries made by the Scribe were at my direction and personally dictated by me. I have reviewed the chart and agree that the record accurately reflects my personal performance of the history, physical exam, medical decision making, and the department course for this patient. I have also personally directed, reviewed, and agree with the discharge instructions and disposition.
[2018-03-28 17:30] LABS: SQUAMOUS EPITHIAL < 1 /hpf (0-5); URINE BACTERIA FEW (<OCC); URINE BILIRUBIN NEGATIVE (NEGATIVE); URINE BLOOD 1+ (NEGATIVE); URINE CLARITY Hazy (Clear); URINE COLOR Yellow (YELLOW); URINE GLUCOSE (UA) 3+ mg/dL (Normal); URINE LEUKOCYTE ESTERASE 1+ Leu/uL (Negative); URINE PROTEIN 1+ mg/dL (NEGATIVE); URINE UROBILINOGEN NORMAL mg/dL (0.2-1.0)
[2018-03-28 18:02] VITALS: BP 140/86; PULSE 98; RESP 20; TEMP 98.6
[2018-03-28 18:25] VITALS: O2SAT 99
== END 2018-03-28 18:03 | disposition home or self-care (01) ==
LOC: C.ER 12:37
DX: Z46.6 Encounter for fitting and adjustment of urinary device (principal)

== ENCOUNTER 2018-07-26 11:28 | Emergency (ER) | payer MEDICARE ==
[2018-07-26 11:29] VITALS: BMI 21.9
[2018-07-26 11:47] VITALS: RESP 19; TEMP 99
[2018-07-26 13:25] VITALS: BP 136/84; PULSE 83
[2018-07-26 13:39] VITALS: O2SAT 97
--- NOTE | 2018-07-26 13:39 | C.PDOC ---
History Of Present Illness 77-year-old female, presents to the emergency department for fley insertion. patient states she gets it changed every month, but it fell out. She denies any nausea/vomiting, fever or chills. Time Seen by Provider: 07/26/18 12:14 Chief Complaint (Nursing): Female Genitourinary History Per: Patient History/Exam Limitations: no limitations Current Symptoms Are (Timing): Still Present Severity: Moderate Past Medical History Reviewed: Historical Data, Nursing Documentation, Vital Signs Vital Signs: Last Vital Signs Temp 99 F 07/26/18 11:43 Pulse 86 07/26/18 11:43 Resp 19 07/26/18 11:43 BP 152/103 H 07/26/18 11:43 Pulse Ox 97 07/26/18 11:43 - Medical History PMH: Anemia, Arthritis (MILD), Diabetes, Gastrointestinal Ulcer, HTN, Hypercholesterolemia, Chronic Kidney Disease ("STAGE 4" ON MED RECORD) - [employer] Procedures ASSISTANCE WITH RESPIRATORY VENTILATION, <24 HRS, CPAP (11/11/15) CONTINUOUS INVASIVE MECHANICAL VENTILATION <96 CONSEC HRS (04/10/14) CYSTOMETROGRAM (03/25/15) CYSTOSCOPY NEC (03/25/15) EXCISION OF STOMACH, ENDO, DIAGN (11/11/15) INSERT INDWELLING CATH (04/11/15) INSERT INFUSION DEV IN R INT JUGULAR VEIN, PERC (11/11/15) INTRODUCE OTH ANTI-INFECT IN CENTRAL VEIN, PERC (11/11/15) TRANSFUSE NONAUT RED BLOOD CELLS IN PERIPH VEIN, PERC (11/11/15) ULTRASONOGRAPHY OF PERICARDIUM, TRANSESOPHAGEAL (11/11/15) Family History: States: No Known Family Hx - Social History Hx Tobacco Use: No Hx Alcohol Use: No Hx Substance Use: No - Immunization History Hx Tetanus Toxoid Vaccination: No Hx Influenza Vaccination: No Hx Pneumococcal Vaccination: No Review Of Systems Constitutional: Negative for: Fever Respiratory: Negative for: Shortness of Breath Gastrointestinal: Negative for: Vomiting Skin: Negative for: Rash Physical Exam - Physical Exam Appears: Non-toxic, No Acute Distress Skin: Warm, Dry, No Rash Head: Atraumatic, Normacephalic Eye(s): bilateral: Normal Inspection, PERRL, EOMI Nose: Normal Oral Mucosa: Moist Lips: Normal Appearing Neck: Normal ROM Cardiovascular: Rhythm Regular, No Murmur Respiratory: Normal Breath Sounds, No Accessory Muscle Use Gastrointestinal/Abdominal: Soft, No Tenderness, No Guarding, No Rebound Back: Normal Inspection Extremity: Normal ROM, No Deformity Neurological/Psych: Oriented x3, Normal Speech ED Course And Treatment O2 Sat by Pulse Oximetry: 97 Pulse Ox Interpretation: Normal (RA) Progress Note: Mckeon catheter inserted without difficulty by nursing staff. Discharged in stable condition Reassessment Condition: Improved Disposition Counseled Patient/Family Regarding: Diagnosis, Need For Followup - Disposition Referrals: Arcenio Rosario MD [Staff Provider] - Disposition: HOME/ ROUTINE Disposition Time: 13:45 Condition: IMPROVED Additional Instructions: Follow up with urology for further evaluation Instructions: Mckeon Catheter, Female Forms: [employer] (Danish) - POA Present On Arrival: None - Clinical Impression Clinical Impression: Encounter for Mckeon catheter replacement - Scribe Statement The provider has reviewed the documentation as recorded by the Scribe (Madalyn Mancera) All medical record entries made by the Scribe were at my direction and personally dictated by me. I have reviewed the chart and agree that the record accurately reflects my personal performance of the history, physical exam, medical decision making, and the department course for this patient. I have also personally directed, reviewed, and agree with the discharge instructions and disposition.
== END 2018-07-26 13:54 | disposition home or self-care (01) ==
LOC: C.ER 11:28
DX: Z46.6 Encounter for fitting and adjustment of urinary device (principal)

== ENCOUNTER 2018-07-31 15:34 | Emergency (ER) | payer MEDICARE ==
[2018-07-31 15:35] VITALS: BMI 21.9
[2018-07-31 15:45] VITALS: TEMP 97.5
[2018-07-31] MEDS ORDERED: Sodium Chloride 0.9% 1,000 ML IV SCH (16:15)
--- NOTE | 2018-07-31 16:30 | C.PDOC ---
History Of Present Illness Ms. Sánchez is 77 year old female PMH DM2, HTN, HLD, neurogenic bladder on foleys, OA, CKD compliant medications was sent to ED by PMD Dr. Lyn due to tachycardia and elevated POC glucose. She is feeling fine and doesn't think she needs to be hospitalized. Her son measured her glucose in the 300s and gave her 20u instead of the usual 15u of Novolog before lunch. She ate her normal lunch (cheese sandwich) and proceeded to her scheduled appointment with Dr. Lyn. She was found to have glucose in the 300s as well as tachycardia in the office setting. Son immediately brought her here. Denies headache, dizziness, shortness of breath, cough, numbness, tingling, constipation, diarrhea, blurry vision, double vision, rhinorrhea. <Harriet Woods - Last Filed: 07/31/18 18:31> <Harriet Woods - Last Filed: 07/31/18 18:31> <Dileep Morales DO - Last Filed: 07/31/18 19:03> Time Seen by Provider: 07/31/18 16:07 Chief Complaint (Nursing): High Blood Sugar Past Medical History Reviewed: Historical Data, Nursing Documentation, Vital Signs Vital Signs: Last Vital Signs Temp 97.5 F L 07/31/18 15:42 Pulse 107 H 07/31/18 15:42 Resp 18 07/31/18 15:42 BP 142/91 H 07/31/18 15:42 Pulse Ox 98 07/31/18 15:42 - Medical History PMH: Anemia, Arthritis (MILD), Diabetes, Gastrointestinal Ulcer, HTN, H ypercholesterolemia, Chronic Kidney Disease ("STAGE 4" ON MED RECORD) - [facility] Procedures ASSISTANCE WITH RESPIRATORY VENTILATION, <24 HRS, CPAP (11/11/15) CONTINUOUS INVASIVE MECHANICAL VENTILATION <96 CONSEC HRS (04/10/14) CYSTOMETROGRAM (03/25/15) CYSTOSCOPY NEC (03/25/15) EXCISION OF STOMACH, ENDO, DIAGN (11/11/15) INSERT INDWELLING CATH (04/11/15) INSERT INFUSION DEV IN R INT JUGULAR VEIN, PERC (11/11/15) INTRODUCE OTH ANTI-INFECT IN CENTRAL VEIN, PERC (11/11/15) TRANSFUSE NONAUT RED BLOOD CELLS IN PERIPH VEIN, PERC (11/11/15) ULTRASONOGRAPHY OF PERICARDIUM, TRANSESOPHAGEAL (11/11/15) Family History: States: Unknown Family Hx - Social History Hx Tobacco Use: No Hx Alcohol Use: No Hx Substance Use: No - Immunization History Hx Tetanus Toxoid Vaccination: No Hx Influenza Vaccination: No Hx Pneumococcal Vaccination: No <Harriet Woods Jamie - Last Filed: 07/31/18 18:31> Vital Signs: Last Vital Signs Temp 97.5 F L 07/31/18 15:42 Pulse 83 07/31/18 18:48 Resp 19 07/31/18 18:48 BP 134/83 07/31/18 18:48 Pulse Ox 99 07/31/18 18:48 - [facility] Procedures ASSISTANCE WITH RESPIRATORY VENTILATION, <24 HRS, CPAP (11/11/15) CONTINUOUS INVASIVE MECHANICAL VENTILATION <96 CONSEC HRS (04/10/14) CYSTOMETROGRAM (03/25/15) CYSTOSCOPY NEC (03/25/15) EXCISION OF STOMACH, ENDO, DIAGN (11/11/15) INSERT INDWELLING CATH (04/11/15) INSERT INFUSION DEV IN R INT JUGULAR VEIN, PERC (11/11/15) INTRODUCE OTH ANTI-INFECT IN CENTRAL VEIN, PERC (11/11/15) TRANSFUSE NONAUT RED BLOOD CELLS IN PERIPH VEIN, PERC (11/11/15) ULTRASONOGRAPHY OF PERICARDIUM, TRANSESOPHAGEAL (11/11/15) <Dileep Morales DO - Last Filed: 07/31/18 19:03> Review Of Systems Except As Marked, All Systems Reviewed And Found Negative. Constitutional: Negative for: Fever, Chills, Sweats, Weakness, Malaise, Weight loss Eyes: Negative for: Pain, Vision Change, Conjunctivae Inflammation ENT: Negative for: Ear Pain, Ear Discharge, Nose Pain, Nose Discharge, Nose Congestion, Mouth Pain Cardiovascular: Negative for: Chest Pain, Palpitations, Orthopnea, Edema, Light Headedness Respiratory: Negative for: Cough, Shortness of Breath, Hemoptysis, SOB with Excertion, Sputum, Wheezing Gastrointestinal: Negative for: Nausea, Vomiting, Abdominal Pain, Diarrhea, Constipation Genitourinary: Negative for: Dysuria, Frequency, Incontinence (urinary monzon in place) Musculoskeletal: Negative for: Neck Pain, Shoulder Pain, Arm Pain, Back Pain Neurological: Negative for: Weakness, Numbness, Incoordination, Confusion Psych: Negative for: Anxiety, Depression <Harriet Woods - Last Filed: 07/31/18 18:31> ED Course And Treatment - Laboratory Results Result Diagrams: 07/31/18 17:42 07/31/18 17:42 O2 Sat by Pulse Oximetry: 98 <Josie Woodsbersamira Ayala - Last Filed: 07/31/18 18:31> - Laboratory Results Result Diagrams: 07/31/18 17:42 07/31/18 17:42 <Dileep Morales DO - Last Filed: 07/31/18 19:03> Medical Decision Making Medical Decision Making: POC glucose 392 CBC, CMP, beta hydroxybutyrate - all unremarkable, bHydroxy 0.06 VBG shock panel pH 7.27 IVF started insulin withheld as glucose improved with just IV hydration, tachycardia resolved. Dr. Lyn contacted - left a voice message. <Josie Woodsberly Jamie - Last Filed: 07/31/18 18:31> Disposition - Disposition Disposition Time: 18:31 <WoodsHarriet - Last Filed: 07/31/18 18:31> <Dileep Morales DO - Last Filed: 07/31/18 19:03> - Disposition Referrals: Lorenzo Lyn MD [Staff Provider] - Disposition: HOME/ ROUTINE Condition: IMPROVED Additional Instructions: JEFFERY SÁNCHEZ, thank you for letting us take care of you today. The emergency medical care you received today was directed at your acute symptoms. If you were prescribed any medication, please fill it and take as directed. It may take several days for your symptoms to resolve. Return to the Emergency Department if your symptoms worsen, do not improve, or if you have any other problems. Please contact your doctor or call one of the physicians/clinics you have been referred to that are listed on the Patient Visit Information form that is included in your discharge packet. Bring any paperwork you were given at discharge with you along with any medications you are taking to your follow up visit. Our treatment cannot replace ongoing medical care by a primary care provider outside of the emergency department. Thank you for allowing the Critical access hospital team to be part of your care today. Follow up with Dr. Lyn in 1-2 days for re-evaluation and further management. Instructions: Hyperglycemia, Adult (DC), Diabetes and Diet Forms: [employer] [facility] (Namibian) - Clinical Impression Clinical Impression: Hyperglycemia - PA / LEAN LEADER / Resident Statement MD/DO has reviewed & agrees with the documentation as recorded. MD/DO has examined the patient and agrees with the treatment plan. <Harriet Woods - Last Filed: 07/31/18 18:31>
[2018-07-31] MEDS ORDERED: Sodium Chloride 0.9% 1,000 ML ONE (16:39)
[2018-07-31] MEDS ORDERED: (Novolin R) Insulin Human Regular 100 units/ml vial IVP STA (17:01)
[2018-07-31 17:47] LABS: BASO # 0.1 K/uL (0.0-0.2); BASO % 0.7 % (0.0-2.0); EOS # 0.3 K/uL (0.0-0.7); EOS % 2.7 % (0.0-4.0); HEMOGLOBIN 12.7 g/dL (11.0-16.0); LYMPH # 3.5 K/uL (1.0-4.3); MEAN CORPUSCULAR HEMOGLOBIN 28.8 pg (27.0-31.0); MEAN CORPUSCULAR HGB CONC 33.5 g/dL (33.0-37.0); MEAN PLATELET VOLUME 8.2 fL (7.2-11.7); MONO # 0.7 K/uL (0.0-0.8); MONO % 5.9 % (0.0-10.0); NEUT # 7.4 K/uL (1.8-7.0); NEUT % 61.7 % (50.0-75.0); NRBC % 0.2 % (0.0-2.0); RBC 4.43 Mil/uL (3.80-5.20); RED CELL DISTRIBUTION WIDTH 14.4 % (11.5-14.5)
[2018-07-31 18:01] LABS: ALB/GLOB RATIO 1.4 (1.0-2.1); CALCIUM 8.9 mg/dl (8.6-10.4)
[2018-07-31 18:12] LABS: VENOUS BLOOD GAS BASE EXCESS -4.3 mmol/L (0.0-2.0); VENOUS BLOOD GAS PCO2 50 mmHg (40-60); VENOUS BLOOD GAS PO2 21 mm/Hg (30-55); VENOUS BLOOD PH 7.27 (7.32-7.43)
[2018-07-31 18:49] VITALS: BP 134/83; PULSE 83; RESP 19; O2SAT 99
== END 2018-07-31 18:48 | disposition home or self-care (01) ==
LOC: C.ER 15:34
DX: E11.65 Type 2 diabetes mellitus with hyperglycemia (principal); E78.00 Pure hypercholesterolemia, unspecified; I12.9 Hypertensive chronic kidney disease with stage 1 through stage 4 chronic kidney disease, or unspecified chronic kidney disease; N18.4 Chronic kidney disease, stage 4 (severe)
CPT/HCPCS: 80053; 82009; 82803; 82948; 85025; 96360; 96361; 99284; J7030

== ENCOUNTER 2018-09-04 10:06 | Emergency (ER) | payer MEDICARE ==
[2018-09-04 10:06] VITALS: BMI 21.9
--- NOTE | 2018-09-04 10:40 | C.PDOC ---
History Of Present Illness 78 y/o female with history of neurogenic bladder presents to ED requesting monzon to be inserted. Patient states monzon fell out while on a trip. Patient has frequent prior ED visits with similar complaints. Patient denies hematuria, dysuria, abdominal pain, fever, chills or any other complaints at this time. Time Seen by Provider: 09/04/18 10:28 Chief Complaint (Nursing): Female Genitourinary History Per: Patient History/Exam Limitations: no limitations Onset/Duration Of Symptoms: Days Current Symptoms Are (Timing): Still Present Past Medical History Reviewed: Historical Data, Nursing Documentation, Vital Signs Vital Signs: Last Vital Signs Temp 97.6 F 09/04/18 10:21 Pulse 105 H 09/04/18 10:21 Resp 18 09/04/18 10:21 BP 139/82 09/04/18 10:21 Pulse Ox 97 09/04/18 10:21 - Medical History PMH: Anemia, Arthritis (MILD), Diabetes, Gastrointestinal Ulcer, HTN, Hypercholesterolemia, Chronic Kidney Disease ("STAGE 4" ON MED RECORD) Surgical History: No Surg Hx - [facility] Procedures ASSISTANCE WITH RESPIRATORY VENTILATION, <24 HRS, CPAP (11/11/15) CONTINUOUS INVASIVE MECHANICAL VENTILATION <96 CONSEC HRS (04/10/14) CYSTOMETROGRAM (03/25/15) CYSTOSCOPY NEC (03/25/15) EXCISION OF STOMACH, ENDO, DIAGN (11/11/15) INSERT INDWELLING CATH (04/11/15) INSERT INFUSION DEV IN R INT JUGULAR VEIN, PERC (11/11/15) INTRODUCE OTH ANTI-INFECT IN CENTRAL VEIN, PERC (11/11/15) TRANSFUSE NONAUT RED BLOOD CELLS IN PERIPH VEIN, PERC (11/11/15) ULTRASONOGRAPHY OF PERICARDIUM, TRANSESOPHAGEAL (11/11/15) Family History: States: No Known Family Hx - Social History Hx Tobacco Use: No Hx Alcohol Use: No Hx Substance Use: No - Immunization History Hx Tetanus Toxoid Vaccination: No Hx Influenza Vaccination: No Hx Pneumococcal Vaccination: No Review Of Systems Constitutional: Negative for: Fever, Chills Gastrointestinal: Negative for: Nausea, Vomiting, Abdominal Pain Genitourinary: Negative for: Dysuria, Hematuria Skin: Negative for: Rash Physical Exam - Physical Exam Appears: Non-toxic, No Acute Distress Skin: Warm, Dry, No Rash Head: Atraumatic, Normacephalic Eye(s): bilateral: Normal Inspection Oral Mucosa: Moist Neck: Normal ROM, Supple Cardiovascular: Rhythm Regular Respiratory: Normal Breath Sounds, No Rales, No Rhonchi, No Wheezing Gastrointestinal/Abdominal: Soft, No Tenderness, No Guarding, No Rebound Back: No CVA Tenderness Extremity: Normal ROM, Capillary Refill (<2 seconds) Neurological/Psych: Oriented x3, Normal Speech, Normal Cognition ED Course And Treatment O2 Sat by Pulse Oximetry: 97 (RA) Pulse Ox Interpretation: Normal Medical Decision Making Medical Decision Making: monzon replaced. stable for dc. Disposition - Disposition Disposition: HOME/ ROUTINE Disposition Time: 11:00 Condition: GOOD Instructions: How to Care for Your Monzon Catheter, Female, Monzon Catheter, Female Forms: [facility] (Guatemalan) - Clinical Impression Clinical Impression: Encounter for Monzon catheter replacement - Scribe Statement The provider has reviewed the documentation as recorded by the Tainaibchristy Escalante All medical record entries made by the Scribe were at my direction and personally dictated by me. I have reviewed the chart and agree that the record accurately reflects my personal performance of the history, physical exam, medical decision making, and the department course for this patient. I have also personally directed, reviewed, and agree with the discharge instructions and disposition.
[2018-09-04 11:15] VITALS: BP 161/95; PULSE 97; RESP 16; TEMP 98.4
[2018-09-05 00:38] VITALS: O2SAT 97
== END 2018-09-04 11:19 | disposition home or self-care (01) ==
LOC: C.ER 10:06
DX: Z46.6 Encounter for fitting and adjustment of urinary device (principal)

== ENCOUNTER 2018-10-18 13:59 | Emergency (ER) | payer MEDICARE ==
[2018-10-18 13:59] VITALS: BMI 21.9
--- NOTE | 2018-10-18 18:40 | C.PDOC ---
History Of Present Illness 78 y/o female, a patient of Dr. Lyn, was told last week that the bloodwork done in office showed potassium was high. Patient is traveling to [place] and decided to wait until she got back to have it addressed. Patient also has a chronic indwelling monzon catheter for chronic urinary retention and states that it somehow came out 3 days ago while traveling. Patient is able to urinate and is not in any distress. Patient is requesting to put catheter back. Time Seen by Provider: 10/18/18 17:59 Chief Complaint (Nursing): Abnormal Labs History Per: Patient History/Exam Limitations: no limitations Onset/Duration Of Symptoms: Days Current Symptoms Are (Timing): Still Present Past Medical History Reviewed: Historical Data, Nursing Documentation, Vital Signs Vital Signs: Last Vital Signs Temp 98.4 F 10/18/18 14:26 Pulse 98 H 10/18/18 14:26 Resp 18 10/18/18 14:26 BP 164/91 H 10/18/18 14:26 Pulse Ox 99 10/18/18 14:26 - Medical History PMH: Anemia, Arthritis (MILD), Diabetes, Gastrointestinal Ulcer, HTN, Hypercho lesterolemia, Chronic Kidney Disease ("STAGE 4" ON MED RECORD) - [facility] Procedures ASSISTANCE WITH RESPIRATORY VENTILATION, <24 HRS, CPAP (11/11/15) CONTINUOUS INVASIVE MECHANICAL VENTILATION <96 CONSEC HRS (04/10/14) CYSTOMETROGRAM (03/25/15) CYSTOSCOPY NEC (03/25/15) EXCISION OF STOMACH, ENDO, DIAGN (11/11/15) INSERT INDWELLING CATH (04/11/15) INSERT INFUSION DEV IN R INT JUGULAR VEIN, PERC (11/11/15) INTRODUCE OTH ANTI-INFECT IN CENTRAL VEIN, PERC (11/11/15) TRANSFUSE NONAUT RED BLOOD CELLS IN PERIPH VEIN, PERC (11/11/15) ULTRASONOGRAPHY OF PERICARDIUM, TRANSESOPHAGEAL (11/11/15) Family History: States: No Known Family Hx - Social History Hx Tobacco Use: No Hx Alcohol Use: No Hx Substance Use: No - Immunization History Hx Tetanus Toxoid Vaccination: No Hx Influenza Vaccination: No Hx Pneumococcal Vaccination: No Review Of Systems Constitutional: Negative for: Fever Cardiovascular: Negative for: Chest Pain Respiratory: Negative for: Shortness of Breath Gastrointestinal: Negative for: Vomiting Genitourinary: Positive for: Other (Urinary retention). Negative for: Dysuria Physical Exam - Physical Exam Appears: Non-toxic, No Acute Distress Skin: Warm, Dry Head: Atraumatic, Normacephalic Eye(s): bilateral: Normal Inspection Oral Mucosa: Moist Neck: Supple Chest: Symmetrical Cardiovascular: Rhythm Regular, No Murmur Respiratory: Normal Breath Sounds, No Rales, No Rhonchi, No Wheezing Gastrointestinal/Abdominal: Soft, No Tenderness Extremity: Bilateral: Atraumatic, Normal Color And Temperature, Normal ROM Neurological/Psych: Oriented x3, Normal Speech ED Course And Treatment - Laboratory Results Result Diagrams: 10/18/18 18:39 10/18/18 18:39 Lab Interpretation: Abnormal (Hgb 10.9, Hct 32.6, BUN 57, Cr 3.5 (improved from prior) K+ 4.9) ECG: Interpreted By Me, Viewed By Me ECG Rhythm: Sinus Rhythm (with LVH) ECG Interpretation: No Acute Changes Interpretation Of ECG: Normal Sinus Rhythm with LVH. O2 Sat by Pulse Oximetry: 99 (RA) Pulse Ox Interpretation: Normal - Physician Consult Information Time Consulting Physician Contacted: 19:24 Physician Contacted: Lorenzo Lyn Outcome Of Conversation: Patient to follow up with his office tomorrow. Will not reinsert monzon at this time due to lack of evidence of any urinary retention. Advised to follow up with Dr Rosario. Medical Decision Making Medical Decision Making: Plan: --EKG --Bloodwork --Bladder scan --Urinary catheter insertion Disposition Counseled Patient/Family Regarding: Studies Performed, Diagnosis, Need For Followup - Disposition Referrals: Arcenio Rosario MD [Staff Provider] - Lorenzo Lyn MD [Staff Provider] - Disposition: HOME/ ROUTINE Disposition Time: 19:27 Condition: STABLE Instructions: Kidney Failure Forms: [facility] (Welsh) - Clinical Impression Clinical Impression: Renal insufficiency - Scribe Statement The provider has reviewed the documentation as recorded by the Tainaibchristy Choudhury Provider Attestation: All medical record entries made by the Scribe were at my direction and personally dictated by me. I have reviewed the chart and agree that the record accurately reflects my personal performance of the history, physical exam, medical decision making, and the department course for this patient. I have also personally directed, reviewed, and agree with the discharge instructions and disposition.
[2018-10-18 18:42] LABS: BASO # 0.1 K/uL (0.0-0.2); BASO % 0.8 % (0.0-2.0); EOS # 0.3 K/uL (0.0-0.7); EOS % 3.9 % (0.0-4.0); HEMOGLOBIN 10.9 g/dL (11.0-16.0); LYMPH # 1.9 K/uL (1.0-4.3); LYMPH % 22.4 % (20.0-40.0); MEAN CELL VOLUME 87.4 fL (81.0-99.0); MEAN CORPUSCULAR HEMOGLOBIN 29.2 pg (27.0-31.0); MEAN CORPUSCULAR HGB CONC 33.4 g/dL (33.0-37.0); MEAN PLATELET VOLUME 7.2 fL (7.2-11.7); MONO # 0.7 K/uL (0.0-0.8); MONO % 8.5 % (0.0-10.0); NEUT # 5.5 K/uL (1.8-7.0); NEUT % 64.4 % (50.0-75.0); NRBC % 0.1 % (0.0-2.0); RBC 3.73 Mil/uL (3.80-5.20); RED CELL DISTRIBUTION WIDTH 14.8 % (11.5-14.5); WHITE BLOOD COUNT 8.6 K/uL (4.8-10.8)
[2018-10-18 18:54] LABS: ALB/GLOB RATIO 1.4 (1.0-2.1); ALBUMIN 4.4 g/dL (3.5-5.0); CALCIUM 8.3 mg/dl (8.6-10.4)
[2018-10-18 19:47] VITALS: BP 151/86; PULSE 86; RESP 14; TEMP 97.7; O2SAT 98
--- NOTE | 2018-10-23 14:41 | CARD ---
APPROVED REPORT Date of service: 10/18/2018 EKG Measurement Heart [id number] [place] [id number] <Conclusion> Normal sinus rhythm Minimal voltage criteria for LVH, may be normal variant Borderline ECG
--- NOTE | 2018-10-23 14:42 | CARD ---
APPROVED REPORT Date of service: 10/18/2018 EKG Measurement Heart [id number] <Conclusion> Sinus rhythm with occasional premature ventricular complexes Possible Left atrial enlargement Inferior infarct, age undetermined Abnormal ECG
== END 2018-10-18 19:47 | disposition home or self-care (01) ==
LOC: C.ER 13:59
DX: N28.9 Disorder of kidney and ureter, unspecified (principal)

== ENCOUNTER 2019-01-04 15:13 | Inpatient (IN) | payer MEDICARE ==
[2019-01-04 15:14] VITALS: BMI 21.9
[2019-01-04] MEDS ORDERED: Sodium Chloride 0.9% 500 ML IV STA (16:16)
[2019-01-04 16:36] LABS: BASO % 0.3 % (0.0-2.0); EOS # 0.1 K/uL (0.0-0.7); EOS % 0.9 % (0.0-4.0); HEMOGLOBIN 10.7 g/dL (11.0-16.0); LYMPH # 1.7 K/uL (1.0-4.3); LYMPH % 15.3 % (20.0-40.0); MEAN CORPUSCULAR HEMOGLOBIN 28.8 pg (27.0-31.0); MEAN CORPUSCULAR HGB CONC 33.5 g/dL (33.0-37.0); MEAN PLATELET VOLUME 7.4 fL (7.2-11.7); MONO % 8.6 % (0.0-10.0); NEUT # 8.3 K/uL (1.8-7.0); NEUT % 74.9 % (50.0-75.0); RBC 3.73 Mil/uL (3.80-5.20); RED CELL DISTRIBUTION WIDTH 14.3 % (11.5-14.5); WHITE BLOOD COUNT 11.1 K/uL (4.8-10.8)
[2019-01-04 16:50] LABS: INR 1.1; PROTHROMBIN TIME 12.5 SECONDS (9.7-12.2)
--- NOTE | 2019-01-04 16:53 | RAD ---
Date of service: 01/04/2019 PROCEDURE: Left Wrist Radiographs. HISTORY: fell COMPARISON: None. FINDINGS: BONES: Comminuted displaced distal radial fracture with marked dorsal displacement and overriding. Likely intra-articular extension. The radiocarpal relationship is preserved. There is no evidence of ulnar styloid process fracture. There is no additional fracture identified. JOINTS: Normal carpal alignment is maintained. SOFT TISSUES: Normal. OTHER FINDINGS: None. IMPRESSION: Comminuted displaced distal radial fracture with overriding.
--- NOTE | 2019-01-04 16:54 | RAD ---
Date of service: 01/04/2019 PROCEDURE: CHEST RADIOGRAPH, 1 VIEW HISTORY: dizzy, fell COMPARISON: 02/18/2016 FINDINGS: LUNGS: Clear. PLEURA: No pneumothorax or pleural fluid seen. CARDIOVASCULAR: No aortic atherosclerotic calcification present. Normal. OSSEOUS STRUCTURES: No significant abnormalities. VISUALIZED UPPER ABDOMEN: Normal. OTHER FINDINGS: None. IMPRESSION: No active disease.
[2019-01-04 17:03] LABS: ALB/GLOB RATIO 1.6 (1.0-2.1); ALBUMIN 4.6 g/dL (3.5-5.0); CALCIUM 8.4 mg/dl (8.6-10.4)
[2019-01-04 17:14] LABS: CK-MB 9.04 ng/mL (0.0-3.38); TROPONIN I 0.04 ng/mL (0.00-0.120)
--- NOTE | 2019-01-04 17:19 | CT ---
Date of service: 01/04/2019 PROCEDURE: CT HEAD WITHOUT CONTRAST. HISTORY: dizzy, fell COMPARISON: 01/04/2017. TECHNIQUE: Axial computed tomography images were obtained through the head/brain without intravenous contrast. Radiation dose: Total exam DLP = 1760.7 mGy-cm. This CT exam was performed using one or more of the following dose reduction techniques: Automated exposure control, adjustment of the mA and/or kV according to patient size, and/or use of iterative reconstruction technique. FINDINGS: HEMORRHAGE: No intracranial hemorrhage. BRAIN: There are mild chronic microangiopathic changes. There is no mass, mass effect or abnormal extra-axial fluid collection. There is no territorial infarction. The midline sagittal structures are normal. VENTRICLES: There is moderate age-related global parenchymal volume loss and proportionate enlargement of the ventricles and cortical sulci. CALVARIUM: There is no calvarial fracture. Small left frontal scalp hematoma. PARANASAL SINUSES: Predominantly clear. MASTOID AIR CELLS: Predominantly clear. OTHER FINDINGS: None. IMPRESSION: No acute intracranial abnormality. Mild chronic microangiopathic changes and mild age-related global parenchymal volume loss. Small left frontal scalp hematoma.
--- NOTE | 2019-01-04 17:27 | CT ---
Date of service: 01/04/2019 PROCEDURE: CT Cervical Spine without contrast HISTORY: dizzy, fell COMPARISON: None available. TECHNIQUE: Axial computed tomography images were obtained of the cervical spine without the use of intravenous contrast. Coronal and sagittal reformatted images were created and reviewed. Radiation dose: Total exam DLP = 452.37 mGy-cm. This CT exam was performed using one or more of the following dose reduction techniques: Automated exposure control, adjustment of the mA and/or kV according to patient size, and/or use of iterative reconstruction technique. FINDINGS: VERTEBRAE: There is mild degenerative anterior listhesis of C4 on C5. There straightening of the cervical spine with loss of normal cervical lordosis. There is diffuse bone demineralization. There is no acute fracture or traumatic anterior listhesis. The craniocervical junction is normal. The atlantoaxial joint is normal. DISCS/SPINAL CANAL/NEURAL FORAMINA: Evaluation of the discs and spinal cord is limited on noncontrast CT examination. Allowing for this there is mild multilevel degenerative disc disease due to combination of disc osteophyte complexes, uncovertebral joint hypertrophy and multilevel facet arthropathy, worse at C3-4 with a broad-based central disc protrusion with mild spinal canal stenosis without neural foraminal narrowing. PARASPINAL SOFT TISSUES: The paraspinous soft tissues are normal. No prevertebral soft tissue thickening OTHER FINDINGS: There is a multinodular thyroid gland. IMPRESSION: No acute fracture or traumatic anterior listhesis. Mild multilevel degenerative disc disease, worse at C3-4 with a broad-based central disc protrusion with mild spinal canal stenosis without neural foraminal narrowing. Multinodular thyroid gland. If not already performed, a dedicated thyroid ultrasound on a nonemergent basis is recommended for further evaluation.
[2019-01-04] MEDS ORDERED: Lidocaine 2% Inj (20ml) INFIL STA (17:38)
--- NOTE | 2019-01-04 17:38 | CT ---
Date of service: 01/04/2019 PROCEDURE: CT ORBITS WITHOUT CONTRAST. HISTORY: Fall COMPARISON: None available. TECHNIQUE: Axial CT images of the orbits were obtained. Coronal and sagittal reformats were generated. Radiation dose: Total exam DLP = 889.61 mGy-cm. This CT exam was performed using one or more of the following dose reduction techniques: Automated exposure control, adjustment of the mA and/or kV according to patient size, and/or use of iterative reconstruction technique. FINDINGS: RIGHT ORBIT: RIGHT BONY ORBIT: No acute fracture. RIGHT INTRAORBITAL STRUCTURES: Globe: Normal. Extraocular muscles: Normal. Post septal space: Normal. Optic Nerve: Normal. Lacrimal Apparatus: Normal. RIGHT PRESEPTAL SOFT TISSUES: Normal. LEFT ORBIT: LEFT BONY ORBIT: No acute fracture. LEFT INTRAORBITAL STRUCTURES: Globe: Normal. Extraocular muscles: Normal. Post septal space: Normal Optic Nerve: Normal. . Lacrimal Apparatus: Normal. LEFT PRESEPTAL SOFT TISSUES: There is mild supraorbital soft tissue swelling. OTHER: None. IMPRESSION: No acute orbital or maxillofacial fracture. Mild left supraorbital soft tissue swelling.
[2019-01-04] MEDS ORDERED: Lidocaine Hydrochloride 5 ML INJ ONE (17:46)
--- NOTE | 2019-01-04 18:50 | C.PDOC ---
History Of Present Illness 78 y/o female presents to ER with son for evaluation of left side pain s/p fall today. Patient states that she felt dizzy and fell on her left side hitting her face and wrist. Denies having LOC, headache, nausea, vomiting,and abdominal pain. - HPI Time Seen by Provider: 01/04/19 15:39 Chief Complaint (Nursing): Trauma History Per: Patient History/Exam Limitations: no limitations Onset/Duration Of Symptoms: Hrs Severity: Moderate Past Medical History Reviewed: Historical Data, Nursing Documentation, Vital Signs Vital Signs: Last Vital Signs Temp 98.7 F 01/04/19 15:26 Pulse 98 H 01/04/19 18:12 Resp 18 01/04/19 18:12 BP 107/78 01/04/19 18:12 Pulse Ox 99 01/04/19 18:12 - Medical History PMH: Anemia, Arthritis (MILD), Diabetes, Gastrointestinal Ulcer, HTN, Hypercholesterolemia, Chronic Kidney Disease ("STAGE 4" ON MED RECORD) Other Surgeries: Hx of surgeries - [facility] Procedures ASSISTANCE WITH RESPIRATORY VENTILATION, <24 HRS, CPAP (11/11/15) CONTINUOUS INVASIVE MECHANICAL VENTILATION <96 CONSEC HRS (04/10/14) CYSTOMETROGRAM (03/25/15) CYSTOSCOPY NEC (03/25/15) EXCISION OF STOMACH, ENDO, DIAGN (11/11/15) INSERT INDWELLING CATH (04/11/15) INSERT INFUSION DEV IN R INT JUGULAR VEIN, PERC (11/11/15) INTRODUCE OTH ANTI-INFECT IN CENTRAL VEIN, PERC (11/11/15) TRANSFUSE NONAUT RED BLOOD CELLS IN PERIPH VEIN, PERC (11/11/15) ULTRASONOGRAPHY OF PERICARDIUM, TRANSESOPHAGEAL (11/11/15) Family History: States: No Known Family Hx - Social History Hx Tobacco Use: No Hx Alcohol Use: No Hx Substance Use: No - Immunization History Hx Tetanus Toxoid Vaccination: No Hx Influenza Vaccination: No Hx Pneumococcal Vaccination: No Review Of Systems Except As Marked, All Systems Reviewed And Found Negative. Constitutional: Negative for: Fever, Chills Neurological: Positive for: Dizziness. Negative for: Headache Physical Exam - Physical Exam Appears: Non-toxic, No Acute Distress Skin: Normal Color, Warm, Dry, Ecchymosis (ecchymosis to left wrist) Head: Normacephalic, Swelling (periorbital swelling and left cheek swelling) Nose: Normal Oral Mucosa: Moist Neck: Supple Chest: Symmetrical Cardiovascular: Rhythm Regular Respiratory: Normal Breath Sounds, No Rales, No Rhonchi, No Wheezing Gastrointestinal/Abdominal: Normal Exam, Soft, No Tenderness, No Guarding, No Rebound Extremity: No Normal ROM (decreased ROM in left wrist), Tenderness (tenderness to left wrist), Deformity (left wrist), Swelling (swelling to left wrist) Neurological/Psych: Oriented x3, Normal Speech ED Course And Treatment - Laboratory Results Result Diagrams: 01/04/19 16:26 01/04/19 16:26 Lab Results: PT 12.5 SECONDS (9.7-12.2) H 01/04/19 16:26 INR 1.1 01/04/19 16:26 APTT 29 SECONDS (21-34) 01/04/19 16:26 Troponin I 0.0400 ng/mL (0.00-0.120) 01/04/19 16:26 Total Bilirubin 0.5 mg/dL (0.2-1.3) 01/04/19 16:26 AST 57 U/L (14-36) H D 01/04/19 16:26 ALT 10 U/L (9-52) 01/04/19 16:26 Alkaline Phosphatase 92 U/L (38-126) 01/04/19 16:26 Total Protein 7.4 g/dL (6.3-8.3) 01/04/19 16:26 Albumin 4.6 g/dL (3.5-5.0) 01/04/19 16:26 Globulin 2.9 gm/dL (2.2-3.9) 01/04/19 16:26 Albumin/Globulin Ratio 1.6 (1.0-2.1) 01/04/19 16:26 O2 Sat by Pulse Oximetry: 99 (RA) Pulse Ox Interpretation: Normal - Other Rad CXR X-Ray: Viewed By Me, Read By Radiologist Interpretation: Date of service: 01/04/2019. PROCEDURE: CHEST RADIOGRAPH, 1 VIEW. HISTORY: dizzy, fell. COMPARISON: 02/18/2016. FINDINGS: LUNGS: Clear. PLEURA: No pneumothorax or pleural fluid seen. CARDIOVASCULAR: No aortic atherosclerotic calcification present. Normal. OSSEOUS STRUCTURES: No significant abnormalities. VISUALIZED UPPER ABDOMEN: Normal. OTHER FINDINGS: None. IMPRESSION: No active disease. X-Ray-Left Wrist X-Ray: Viewed By Me, Read By Radiologist Interpretation: Date of service: 01/04/2019. PROCEDURE: Left Wrist Radiographs. . HISTORY: fell. COMPARISON: None. FINDINGS: BONES: Comminuted displaced distal radial fracture with marked dorsal displacement and overriding. Likely intra-articular extension. The radiocarpal relationship is preserved. There is no evidence of ulnar styloid process fracture. There is no additional fracture identified. JOINTS: Normal carpal alignment is maintained. SOFT TISSUES: Normal. OTHER FINDINGS: None. IMPRESSION: Comminuted displaced distal radial fracture with overriding. - CT Scan/US CT-Head Other Rad Studies (CT/US): Read By Radiologist, Radiology Report Reviewed CT/US Interpretation: Date of service: 01/04/2019. PROCEDURE: CT HEAD WITHOUT CONTRAST. HISTORY: dizzy, fell. COMPARISON: 01/04/2017. TECHNIQUE: Axial computed tomography images were obtained through the head/brain without in travenous contrast. Radiation dose: Total exam DLP = 1760.7 mGy-cm. This CT exam was performed using one or more of the following dose reduction techniques: Automated exposure control, adjustment of the mA and/or kV according to patient size, and/or use of iterative reconstruction technique. FINDINGS: HEMORRHAGE: No intracranial hemorrhage. BRAIN: There are mild chronic microangiopathic ch anges. There is no mass, mass effect or abnormal extra-axial fluid collection. There is no territorial infarction. The midline sagittal structures are normal. VENTRICLES: There is moderate age-related global parenchymal volume loss and proportionate enlargement of the ventricles and cortical sulci. CALVARIUM: There is no calvarial fracture. Small left frontal scalp hematoma. PARANASAL SINUSES: Predominantly clear. MASTOID AIR CELLS: Predominantly clear. OTHER FINDINGS: None. IMPRESSION: No acute intracranial abnormality. Mild chronic microangiopathic changes and mild age-related global parenchymal volume loss. Small left frontal scalp hematoma. CT- Orbit Other Rad Studies (CT/US): Read By Radiologist, Radiology Report Reviewed CT/US Interpretation: Date of service: 01/04/2019. PROCEDURE: CT ORBITS WITHOUT CONTRAST. HISTORY: Fall. COMPARISON: None available. TECHNIQUE: Axial CT images of the orbits were obtained. Coronal and sagittal reformats were generated. Radiation dose: Total exam DLP = 889.61 mGy-cm. This CT exam was performed using one or more of the following dose reduction techniques: Autom ated exposure control, adjustment of the mA and/or kV according to patient size, and/or use of iterative reconstruction technique. FINDINGS: RIGHT ORBIT: RIGHT BONY ORBIT: No acute fracture. RIGHT INTRAORBITAL STRUCTURES: Globe: Normal. Extraocular muscles: Normal. Post septal space: Normal. Optic Nerve: Normal. Lacrimal Apparatus: Normal. RIGHT PRESEPTAL SOFT TISSUES: Normal. LEFT ORBIT: LEFT BONY ORBIT: No acute fracture. LEFT INTRAORBITAL STRUCTURES: Globe: Normal. Extraocular muscles: Normal. Post septal space: Normal. Optic Nerve: Normal. . Lacrimal Apparatus: Normal. LEFT PRESEPTAL SOFT TISSUES: There is mild supraorbital soft tissue swelling. OTHER: None. IMPRESSION: No acute orbital or maxillofacial fracture. Mild left supraorbital soft tissue swelling. CT- Cervical Spine Other Rad Studies (CT/US): Read By Radiologist, Radiology Report Reviewed CT/US Interpretation: Date of service: 01/04/2019. PROCEDURE: CT Cervical Spine without contrast. HISTORY: dizzy, fell. COMPARISON: None available. TECHNIQUE: Axial computed tomography images were obtained of the cervical spine without the use of intravenous contrast. Coronal and sagittal reformatted images were created and reviewed. Radiation dose: Total exam DLP = 452.37 mGy-cm. This CT exam was performed using one or more of the following dose reduction techniques: Automated exposure control, adjustment of the mA and/or kV according to patient size, and/or use of iterative reconstruction technique. FINDINGS: VERTEBRAE: There is mild degenerative anterior listhesis of C4 on C5. There straightening of the cervical spine with loss of normal cervical lordosis. There is diffuse bone demineralization. There is no acute fracture or traumatic anterior listhesis. The craniocervical junction is normal. The atlantoaxial joint is normal. DISCS/SPINAL CANAL/NEURAL FORAMINA: Evaluation of the discs and spinal cord is limited on noncontrast CT examination. Allowing for this there is mild multilevel degenerative disc disease due to combination of disc osteophyte complexes, uncovertebral joint hypertrophy and multilevel facet arthropathy, worse at C3-4 with a broad-based central disc protrusion with mild spinal canal stenosis without neural foraminal narrowing. PARASPINAL SOFT TISSUES: The paraspinous soft tissues are normal. No prevertebral soft tissue thickening. OTHER FINDINGS: There is a multinodular thyroid gland. IMPRESSION: No acute fracture or traumatic anterior listhesis. Mild multilevel degenerative disc disease, worse at C3-4 with a broad-based central disc protrusion with mild spinal canal stenosis without neural foraminal narrowing. Multinodular thyroid gland. If not already performed, a dedicated thyroid ultrasound on a nonemergent basis is recommended for further evaluation. Progress Note: Labs,UA, CXR, CT-Head, CT-Orbits, CT- Cervical Spine, and X-Ray-Left Wrist ordered. Case discussed with , orthopedist. Dr. Rodriguez advised that I do traction and send him picture. He would like to have on consult. Traction was successful. Case discussed with . Patient will be admitted to Telemetry Observation under the service of . Orthopedic Time Out: Side verified Procedure: Fracture reduction Location: Left, Wrist Consent obtained: Verbal Performed by: Mid-level Provider Diagnosis: Fracture Type: Closed Location: Left Bone: Radius Systemic Analgesia: Morphine Capillary refill: Normal Distal Sensation: Normal Distal Motor Function: Decreased Capillary Refill: Normal Compartment: Normal Distal Sensation: Normal Distal Motor Function: Decreased Post-reduction Radiograph: Good Alignment Patient tolerated procedure: Well Notes:: Using traction device, no manipulation. Sugar tong splint was applied. 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 - Scribe Statement The provider has reviewed the documentation as recorded by the [facility] Chelsie Velascoq Provider Attestation All medical record entries made by the Scribe were at my direction and personally dictated by me. I have reviewed the chart and agree that the record accurately reflects my personal performance of the history, physical exam, medical decision making, and the department course for this patient. I have also personally directed, reviewed, and agree with the discharge instructions and disposition.
[2019-01-04 19:15] LABS: SQUAMOUS EPITHIAL < 1 /hpf (0-5); URINE BACTERIA OCC (<OCC); URINE BILIRUBIN NEGATIVE (NEGATIVE); URINE BLOOD 2+ (NEGATIVE); URINE CLARITY Hazy (Clear); URINE COLOR Yellow (YELLOW); URINE GLUCOSE (UA) 2+ mg/dL (Normal); URINE LEUKOCYTE ESTERASE 1+ Leu/uL (Negative); URINE PROTEIN 2+ mg/dL (NEGATIVE); URINE UROBILINOGEN NORMAL mg/dL (0.2-1.0)
[2019-01-04] MEDS: Metoprolol Succinate 25 mg XL Tab PO SCH (21:13)
[2019-01-04] MEDS: (Lantus) Insulin Glargine, Recombinant SC SCH (21:14)
[2019-01-04] MEDS: Rosuvastatin Calcium 2.5 mg Tab PO SCH (21:14)
[2019-01-04] MEDS: (Novolin R) Insulin Human Regular 100 units/ml vial SC SCH (21:17)
[2019-01-04] MEDS: Oxycodone/Acetaminophen 5/325 mg Tab PO PRN (23:33)
[2019-01-05] MEDS: Oxycodone/Acetaminophen 5/325 mg Tab PO PRN (09:11)
[2019-01-05] MEDS: (Novolin R) Insulin Human Regular 100 units/ml vial SC SCH ×4 (09:12→21:26)
[2019-01-05] MEDS: Metoprolol Succinate 25 mg XL Tab PO SCH (11:17)
--- NOTE | 2019-01-05 11:49 | CP.PCM.CON ---
History of Present Illness - History of Present Illness History of Present Illness: Orthopedic consult Dr. Patrick 78F complains of left wrist pain after fall yesterday. Patient denies pain in neck/right UE/back/BLE. She only answers some questions and follows some commands during exam. She admits to dizziness preceding fall. Review of Systems - Review of Systems All systems: reviewed and no additional remarkable complaints except - Musculoskeletal Musculoskeletal: Radiating Pain into Limb Past Patient History - Infectious Disease Hx of Infectious Diseases: None - Past Medical History & Family History Past Medical History?: Yes Past Family History: Reviewed and not pertinent - Past Social History Smoking Status: Never Smoked - CARDIAC Hx Hypercholesterolemia: Yes Hx Hypertension: Yes - PULMONARY Hx Respiratory Disorders: No - NEUROLOGICAL Hx Neurological Disorder: No - HEENT Hx HEENT Problems: Yes Hx Cataracts: Yes (BENJIE IOL) Hx Glaucoma: Yes - RENAL Hx Chronic Kidney Disease: Yes ("STAGE 4" ON MED RECORD) - HEMATOLOGICAL/ONCOLOGICAL Hx Anemia: Yes - INTEGUMENTARY Hx Dermatological Problems: No - MUSCULOSKELETAL/RHEUMATOLOGICAL Hx Arthritis: Yes (MILD) - GASTROINTESTINAL Hx Gastrointestinal Disorders: Yes - GENITOURINARY/GYNECOLOGICAL Hx Genitourinary Disorders: Yes Hx Urinary Tract Infection: Yes Other/Comment: Mckeon Catheter - PSYCHIATRIC Hx Substance Use: No - SURGICAL HISTORY Hx Surgeries: Yes Hx Herniorrhaphy: Yes (UMBILICAL HERNIA) Other/Comment: CYST REMOVAL PER PATIENT - ANESTHESIA Hx Anesthesia: Yes Hx Anesthesia Reactions: No Hx Malignant Hyperthermia: No Meds Allergies/Adverse Reactions: Allergies Allergy/AdvReac Type Severity Reaction Status Date / Time No Known Allergies Allergy Verified 01/04/19 15:33 - Medications Medications: Current Medications Heparin Sodium (Porcine) (Heparin) 5,000 units SC Q8 [facility] Last Admin: 01/05/19 05:32 Dose: 5,000 units Insulin Glargine (Lantus) 20 unit SC HS [facility] Last Admin: 01/04/19 21:14 Dose: 20 unit Insulin Human Regular (Novolin R) 0 unit SC ACHS [facility]; Protocol Last Admin: 01/05/19 09:12 Dose: 1 unit Losartan Potassium (Cozaar) 25 mg PO DAILY [facility] Last Admin: 01/05/19 09:11 Dose: 25 mg Metoprolol Succinate (Toprol Xl) 25 mg PO DAILY [facility] Last Admin: 01/05/19 11:17 Dose: 25 mg Oxycodone/Acetaminophen (Percocet 5/325 Mg Tab) 1 tab PO Q4H PRN PRN Reason: Pain, moderate (4-7) Stop: 01/07/19 20:32 Last Admin: 01/05/19 09:11 Dose: 1 tab Rosuvastatin Calcium (Crestor) 2.5 mg PO HS [facility] Last Admin: 01/04/19 21:14 Dose: 2.5 mg Physical Exam - Constitutional Appears: Well, No Acute Distress - Head Exam Additional comments: ecchymosis to left side of face - Respiratory Exam Respiratory Exam: NORMAL BREATHING PATTERN - Expanded Upper Extremities Exam Left Elbow exam: normal inspection (no tenderness) Forearm Wrist exam: swelling, tenderness Neuro motor exam: finger 2-5 abduction intact, thumb abduction, thumb IP flexion intact, thumb opposition intact, wrist extension intact Neurosensory exam: median nerve intact (one time states she feels light touch but tingling over middle finger volarly, but on repeat she said it was normal. Requires multiple questions to get answer. ), radial nerve intact, ulnar nerve intact Vascular exam: normal capillary refill - Neurological Exam Neurological exam: Alert - Psychiatric Exam Psychiatric exam: Normal Affect, Normal Mood - Skin Skin Exam: Dry, Intact, Normal Color, Warm Results - Vital Signs Recent Vital Signs: Last Vital Signs Temp 98.8 F 01/05/19 07:00 Pulse 77 01/05/19 07:00 Resp 20 01/05/19 07:00 BP 149/81 01/05/19 07:00 Pulse Ox 97 01/05/19 07:00 - Labs Result Diagrams: 01/04/19 16:26 01/04/19 16:26 Labs: Laboratory Results - last 24 hr 01/04/19 01/04/19 01/04/19 16:26 16:26 16:26 WBC 11.1 H RBC 3.73 L Hgb 10.7 L Hct 32.0 L MCV 86.0 MCH 28.8 MCHC 33.5 RDW 14.3 Plt Count 261 MPV 7.4 Neut % (Auto) 74.9 Lymph % (Auto) 15.3 L [place] % (Auto) 8.6 Eos % (Auto) 0.9 Baso % (Auto) 0.3 Neut # (Auto) 8.3 H Lymph # (Auto) 1.7 [place] # (Auto) 1.0 H Eos # (Auto) 0.1 Baso # (Auto) 0.0 PT 12.5 H INR 1.1 APTT 29 Sodium 133 Potassium 3.5 L Chloride 101 Carbon Dioxide 19 L Anion Gap 16 BUN 77 H Creatinine 4.7 H Est GFR ( Amer) 11 Est GFR (Non-Af Amer) 9 POC Glucose (mg/dL) Random Glucose 212 H D Calcium 8.4 L Magnesium 1.8 Total Bilirubin 0.5 AST 57 H D ALT 10 Alkaline Phosphatase 92 Total Creatine Kinase 1022 H CK-MB (Mass) 9.04 H Troponin I 0.0400 Total Protein 7.4 Albumin 4.6 Globulin 2.9 Albumin/Globulin Ratio 1.6 Urine Color Urine Clarity Urine pH Ur Specific [place] Urine Protein Urine Glucose (UA) Urine Ketones Urine Blood Urine Nitrate Urine Bilirubin Urine Urobilinogen Ur Leukocyte Esterase Urine WBC (Auto) Urine RBC (Auto) Ur Squamous Epith Cells Urine Bacteria 01/04/19 01/04/19 01/05/19 18:54 20:54 06:42 WBC RBC Hgb Hct MCV MCH MCHC RDW Plt Count MPV Neut % (Auto) Lymph % (Auto) [place] % (Auto) Eos % (Auto) Baso % (Auto) Neut # (Auto) Lymph # (Auto) [place] # (Auto) Eos # (Auto) Baso # (Auto) PT INR APTT Sodium Potassium Chloride Carbon Dioxide Anion Gap BUN Creatinine Est GFR ( Amer) Est GFR (Non-Af Amer) POC Glucose (mg/dL) 181 H 167 H Random Glucose Calcium Magnesium Total Bilirubin AST ALT Alkaline Phosphatase Total Creatine Kinase CK-MB (Mass) Troponin I Total Protein Albumin Globulin Albumin/Globulin Ratio Urine Color Yellow Urine Clarity Hazy Urine pH 5.0 Ur Specific [place] 1.008 Urine Protein 2+ H Urine Glucose (UA) 2+ H Urine Ketones Negative Urine Blood 2+ H Urine Nitrate Negative Urine Bilirubin Negative Urine Urobilinogen Normal Ur Leukocyte Esterase 1+ H Urine WBC (Auto) 21 H Urine RBC (Auto) < 1 Ur Squamous Epith Cells < 1 Urine Bacteria Occ H 01/05/19 11:07 WBC RBC Hgb Hct MCV MCH MCHC RDW Plt Count MPV Neut % (Auto) Lymph % (Auto) [place] % (Auto) Eos % (Auto) Baso % (Auto) Neut # (Auto) Lymph # (Auto) [place] # (Auto) Eos # (Auto) Baso # (Auto) PT INR APTT Sodium Potassium Chloride Carbon Dioxide Anion Gap BUN Creatinine Est GFR ( Amer) Est GFR (Non-Af Amer) POC Glucose (mg/dL) 176 H Random Glucose Calcium Magnesium Total Bilirubin AST ALT Alkaline Phosphatase Total Creatine Kinase CK-MB (Mass) Troponin I Total Protein Albumin Globulin Albumin/Globulin Ratio Urine Color Urine Clarity Urine pH Ur Specific [place] Urine Protein Urine Glucose (UA) Urine Ketones Urine Blood Urine Nitrate Urine Bilirubin Urine Urobilinogen Ur Leukocyte Esterase Urine WBC (Auto) Urine RBC (Auto) Ur Squamous Epith Cells Urine Bacteria - Impressions Impression: atient Name / ID : [id number] Turcios / [id number] Exam Date : 01/04/2019 16:38:08 ( Approved ) Study Comment : Sex / Age : F / [id number] Creator : Dwain Townsend MD Dictator : Dwain Townsend MD Pastry Cook Apprentice : Boat Finisher : Dwain Townsend MD Approver2 : Report Date : 01/04/2019 16:50:16 My Comment : Date of service: 01/04/2019 PROCEDURE: Left Wrist Radiographs. HISTORY: fell COMPARISON: None. FINDINGS: BONES: Comminuted displaced distal radial fracture with marked dorsal displacement and overriding. Likely intra-articular extension. The radiocarpal relationship is preserved. There is no evidence of ulnar styloid process fracture. There is no additional fracture identified. JOINTS: Normal carpal alignment is maintained. SOFT TISSUES: Normal. OTHER FINDINGS: None. IMPRESSION: Comminuted displaced distal radial fracture with overriding. Assessment & Plan (1) Displaced fracture of distal end of left radius Assessment and Plan: s/p CR in ER only one view in traction, no post reduction/splinting series, wrist xrays ordered, CT ordered sugar tong splint elevate d/w/ Dr. Patrick, will review imaging Status: Acute
--- NOTE | 2019-01-05 12:45 | RAD ---
Date of service: 01/04/2019 PROCEDURE: Left Wrist Radiographs. HISTORY: post traction COMPARISON: 01/04/2019 at 4:40 p.m. FINDINGS: Single lateral projection of the wrist. BONES: Status post traction, there is improved alignment of fracture fragments in the distal radius with improvement in ventral angulation. Redemonstration of acute comminuted fracture in the distal radius and acute nondisplaced fracture in the distal ulna. JOINTS: Normal. No dislocation. SOFT TISSUES: Severe soft tissue swelling at the wrist joint. OTHER FINDINGS: None. IMPRESSION: Status post traction, improved alignment of fracture fragments in the distal radius with improved ventral angulation. Redemonstration of acute comminuted fracture in the distal radius and acute nondisplaced fracture in the distal ulna.
--- NOTE | 2019-01-05 14:44 | CT ---
Date of service: 01/05/2019 PROCEDURE: CT left wrist HISTORY: left distal radius fracture COMPARISON: Not available TECHNIQUE: 2.5 mm contiguous axial sections were acquired through the left wrist. Sagittal and coronal images were reformatted from the axial scan. Please note that the examination is technically limited due to the inability of the patient to maintain an extended arm above head. FINDINGS: There is a comminuted intra-articular distal radial fracture with some displacement, particularly of the most radial fragment. There is a nondisplaced ulnar styloid process fracture. There is some impaction of the radial fracture. There is no additional fracture identified. The radiocarpal articulation appears intact and there is no carpal fracture identified. Normal carpal alignment is maintained. IMPRESSION: Comminuted impacted displaced intra-articular distal radial fracture. Nondisplaced ulnar styloid process fracture.
[2019-01-05] MEDS: Piperacillin/Tazobact 2.25 GM in Sodium Chloride 100 ML IVPB SCH (18:20)
[2019-01-05] MEDS: Rosuvastatin Calcium 2.5 mg Tab PO SCH (21:31)
[2019-01-05] MEDS: (Lantus) Insulin Glargine, Recombinant SC SCH (21:31)
--- NOTE | 2019-01-05 21:55 | CP.PCM.HP ---
Present on Admission - Present on Admission Any Indicators Present on Admission: Yes Urinary Catheter: Yes Past Patient History - Infectious Disease Hx of Infectious Diseases: None - Past Medical History & Family History Past Medical History?: Yes Past Family History: Reviewed and not pertinent - Past Social History Smoking Status: Never Smoked - CARDIAC Hx Hypercholesterolemia: Yes Hx Hypertension: Yes - PULMONARY Hx Respiratory Disorders: No - NEUROLOGICAL Hx Neurological Disorder: No - HEENT Hx HEENT Problems: Yes Hx Cataracts: Yes (BENJIE IOL) Hx Glaucoma: Yes - RENAL Hx Chronic Kidney Disease: Yes ("STAGE 4" ON MED RECORD) - HEMATOLOGICAL/ONCOLOGICAL Hx Anemia: Yes - INTEGUMENTARY Hx Dermatological Problems: No - MUSCULOSKELETAL/RHEUMATOLOGICAL Hx Arthritis: Yes (MILD) - GASTROINTESTINAL Hx Gastrointestinal Disorders: Yes - GENITOURINARY/GYNECOLOGICAL Hx Genitourinary Disorders: Yes Hx Urinary Tract Infection: Yes Other/Comment: Mckeon Catheter - PSYCHIATRIC Hx Substance Use: No - SURGICAL HISTORY Hx Surgeries: Yes Hx Herniorrhaphy: Yes (UMBILICAL HERNIA) Other/Comment: CYST REMOVAL PER PATIENT - ANESTHESIA Hx Anesthesia: Yes Hx Anesthesia Reactions: No Hx Malignant Hyperthermia: No Meds Allergies/Adverse Reactions: Allergies Allergy/AdvReac Type Severity Reaction Status Date / Time No Known Allergies Allergy Verified 01/04/19 15:33 Results - Vital Signs Recent Vital Signs: Last Vital Signs Temp 98.8 F 01/05/19 15:38 Pulse 78 01/05/19 16:00 Resp 20 01/05/19 15:38 BP 165/80 H 01/05/19 15:38 Pulse Ox 96 01/05/19 15:38 - Labs Result Diagrams: 01/04/19 16:26 01/04/19 16:26 Labs: Laboratory Results - last 24 hr 01/05/19 01/05/19 01/05/19 06:42 11:07 17:05 POC Glucose (mg/dL) 167 H 176 H 196 H 01/05/19 21:04 POC Glucose (mg/dL) 294 H
[2019-01-06] MEDS: Piperacillin/Tazobact 2.25 GM in Sodium Chloride 100 ML IVPB SCH ×3 (00:12→17:12)
--- NOTE | 2019-01-06 03:10 | HP ---
CHIEF COMPLAINT: Fall with injury to left arm and left periorbital area. 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 The patient is compliant. The patient was alright until the day of admission when she had a fall. The patient denies any chest pain, palpitation, weakness or dizziness prior to the fall. She fell down and she injured her left arm and she injured her left side of the forehead. The patient denies any seizure-like activity. She has tingling and numbness in the feet. She denies any history of back pain. The patient has a fracture of the left arm. She denies any fever, chills or rigors. She denies any history of hematuria. She denies any history of polyuria, polydipsia or polyphagia. She denies any history of sneezing, itchy eyes or itchy nose. There is pain in the left forehead. There is pain in the knees. 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 SOCIAL HISTORY: She is a nonsmoker and non-EtOH user. CURRENT MEDICATIONS: At home, she is on Crestor, Toprol-XL, Cozaar, Lantus, Novolog and Ambien. PHYSICAL EXAMINATION: GENERAL: An elderly female in no acute distress, alert and oriented. Bruising around the left periorbital area. She has an Jose bandage and a sling in the left arm. VITAL SIGNS: Blood pressure 165/80, pulse 80, respiratory rate 20, temperature 98.8. SKIN: The patient has bruising on the left periorbital area. HEENT: Positive trauma. Normocephalic. Pupils equally reactive to light and accommodation. Positive pallor. Negative jaundice. NECK: Supple. No JVD. No lymphadenopathy. No thyromegaly. No carotid bruit. CHEST WALL: Bilateral symmetrical expansion. No tenderness. No deformity. LUNGS: Bilaterally clear. No rales. No rhonchi. CARDIOVASCULAR SYSTEM: PMI not localized. S1 and S2, regular. No heave. No thrill. ABDOMEN: Soft, nontender. Bowel sounds are positive. GENITOURINARY: The patient has a Mckeon catheter with cloudy urine. RECTAL: No masses. No bleeding. EXTREMITIES: No clubbing, cyanosis or edema. Left arm is in Jose bandage with a sling. CENTRAL NERVOUS SYSTEM: Awake, alert and oriented x3. Cranial nerves II through XII are normal. Power 5/5 x4. Plantars are downgoing. ASSESSMENT: 1. Fall with left arm fracture. 2. Hypertension. 3. Chronic kidney disease, not on dialysis. 4. Type 2 diabetes, poorly controlled. 5. Neurogenic bladder. PLAN: Admit. Detailed orders are written. The patient has already been seen and examined by Orthopedics. The patient will be followed up closely. Lorenzo Lyn MD
[2019-01-06] MEDS: (Novolin R) Insulin Human Regular 100 units/ml vial SC SCH ×4 (07:07→21:32)
[2019-01-06 08:29] LABS: BASO # 0.1 K/uL (0.0-0.2); BASO % 0.5 % (0.0-2.0); EOS # 0.2 K/uL (0.0-0.7); EOS % 1.8 % (0.0-4.0); HEMOGLOBIN 10.2 g/dL (11.0-16.0); LYMPH % 20.2 % (20.0-40.0); MEAN CORPUSCULAR HEMOGLOBIN 29.9 pg (27.0-31.0); MEAN CORPUSCULAR HGB CONC 33.9 g/dL (33.0-37.0); MEAN PLATELET VOLUME 7.5 fL (7.2-11.7); MONO # 1.1 K/uL (0.0-0.8); MONO % 11.5 % (0.0-10.0); NEUT # 6.6 K/uL (1.8-7.0); RBC 3.4 Mil/uL (3.80-5.20); RED CELL DISTRIBUTION WIDTH 14.1 % (11.5-14.5)
[2019-01-06 08:35] LABS: MEAN CELL VOLUME 88.1 fL (81.0-99.0)
[2019-01-06 09:05] LABS: ALB/GLOB RATIO 1.2 (1.0-2.1); ALBUMIN 3.4 g/dL (3.5-5.0); CALCIUM 7.6 mg/dl (8.6-10.4)
[2019-01-06] MEDS: Metoprolol Succinate 25 mg XL Tab PO SCH (09:58)
[2019-01-06] MEDS: Meropenem 500 MG in Sodium Chloride 0.9% 100 ML IVPB SCH ×2 (13:51→21:27)
--- NOTE | 2019-01-06 19:04 | CP.PCM.PN ---
Subjective - Date & Time of Evaluation Date of Evaluation: 01/06/19 Time of Evaluation: 08:20 - Subjective Subjective: dictated Objective - Vital Signs/Intake and Output Vital Signs (last 24 hours): Temp Pulse Resp BP Pulse Ox 97.9 F 76 20 133/77 97 01/06/19 15:00 01/06/19 15:00 01/06/19 15:00 01/06/19 15:00 01/06/19 15:00 Intake and Output: 01/06/19 01/07/19 18:59 06:59 Intake Total 600 Balance 600 - Medications Medications: Current Medications Heparin Sodium (Porcine) (Heparin) 5,000 units SC Q8 [facility] Last Admin: 01/06/19 13:44 Dose: 5,000 units Piperacillin Sod/Tazobactam (Sod 2.25 gm/ Sodium Chloride) 100 mls @ 200 mls/hr IVPB Q8H [facility]; Protocol Last Admin: 01/06/19 17:12 Dose: 200 mls/hr Meropenem 500 mg/ Sodium (Chloride) 100 mls @ 100 mls/hr IVPB Q8H [facility]; Protocol Last Admin: 01/06/19 13:51 Dose: 100 mls/hr Influenza Virus Vaccine (Flucelvax Quad 1325-7244 Syr) 60 mcg IM .ONCE ONE Stop: 01/08/19 10:01 Insulin Glargine (Lantus) 20 unit SC [facility] Last Admin: 01/05/19 21:31 Dose: 20 unit Insulin Human Regular (Novolin R) 0 unit SC [facility]; Protocol Last Admin: 01/06/19 17:13 Dose: 1 unit Losartan Potassium (Cozaar) 25 mg PO DAILY [facility] Last Admin: 01/06/19 09:58 Dose: 25 mg Metoprolol Succinate (Toprol Xl) 25 mg PO DAILY [facility] Last Admin: 01/06/19 09:58 Dose: 25 mg Oxycodone/Acetaminophen (Percocet 5/325 Mg Tab) 1 tab PO Q4H PRN PRN Reason: Pain, moderate (4-7) Stop: 01/07/19 20:32 Last Admin: 01/05/19 09:11 Dose: 1 tab Rosuvastatin Calcium (Crestor) 2.5 mg PO HS [facility] Last Admin: 01/05/19 21:31 Dose: 2.5 mg - Labs Labs: 01/06/19 08:20 01/06/19 08:20 PT 12.5 SECONDS (9.7-12.2) H 01/04/19 16:26 INR 1.1 01/04/19 16:26 APTT 29 SECONDS (21-34) 01/04/19 16:26
[2019-01-06] MEDS: (Lantus) Insulin Glargine, Recombinant SC SCH (21:27)
[2019-01-06] MEDS: Rosuvastatin Calcium 2.5 mg Tab PO SCH (21:28)
[2019-01-07] MEDS: Piperacillin/Tazobact 2.25 GM in Sodium Chloride 100 ML IVPB SCH ×3 (00:58→15:49)
--- NOTE | 2019-01-07 02:28 | PN ---
DATE: 01/06/2019 SUBJECTIVE: The patient is still with left arm pain. She has a bandage on the left arm. She has a bruise in the left orbital area. The patient has dysuria. She has a Mckeon. She has neurogenic bladder. No nausea or vomiting. PHYSICAL EXAMINATION: VITAL SIGNS: Blood pressure 133/77, pulse 76, respiratory rate 20, and temperature 97.9. LUNGS: Clear. CARDIOVASCULAR SYSTEM: S1 and S2, regular. ABDOMEN: Soft. ASSESSMENT: 1. Fall with left upper arm injury. 2. Multidrug resistant urinary tract infection due to Escherichia coli. 3. Hypertension. 4. Chronic kidney disease. PLAN: Antibiotics. Monitor patient. Lorenzo Lyn MD
[2019-01-07] MEDS: Meropenem 500 MG in Sodium Chloride 0.9% 100 ML IVPB SCH ×3 (03:43→18:38)
[2019-01-07] MEDS: (Novolin R) Insulin Human Regular 100 units/ml vial SC SCH ×4 (08:27→21:44)
[2019-01-07] MEDS: Metoprolol Succinate 25 mg XL Tab PO SCH (10:58)
--- NOTE | 2019-01-07 13:06 | RAD ---
Date of service: 01/05/2019 PROCEDURE: Left Wrist Radiographs. HISTORY: post reduction 3 views in splint COMPARISON: None. FINDINGS: BONES: Status post close reduction comminuted, intra-articular distal radial fracture. Bony detail obscured by overlying fiberglass splint. Distal radial fragments are in gross anatomic alignment. Ununited ulnar styloid process fracture again identified. JOINTS: Radiocarpal and intercarpal articulations appear preserved. SOFT TISSUES: Normal. OTHER FINDINGS: None. IMPRESSION: Close reduction comminuted intra-articular distal radial fracture and ulnar styloid process fracture.
--- NOTE | 2019-01-07 15:39 | CP.PCM.CON ---
History of Present Illness - History of Present Illness History of Present Illness: s/p fall at home underwent ORIF left wrist found to have ESBL UTI started on rx PMH HTN OA SH no etoh NKDA Review of Systems - Constitutional Constitutional: As Per HPI - EENT Eyes: absent: As Per HPI, Blind Spots, Blurred Vision, Change in Vision, Decreased Night Vision, Diplopia, Discharge, Dry Eye, Exophthalmos, Floaters, Irritation, Itchy Eyes, Loss of Peripheral Vision, Pain, Photophobia, Requires Corrective Lenses, Sees Flashes, Spots in Vision, Tunnel Vision, Other Visual Disturbances, Loss of Vision, Other Ears: absent: As Per HPI, Decreased Hearing, Ear Discharge, Ear Pain, Tinnitus, Abnormal Hearing, Disequilibrium, Dizziness, Other Nose/Mouth/Throat: absent: As Per HPI, Epistaxis, Nasal Congestion, Nasal Discharge, Nasal Obstruction, Nasal Trauma, Nose Pain, Post Nasal Drip, Sinus Pain, Sinus Pressure, Bleeding Gums, Change in Voice, Dental Pain, Dry Mouth, Dysphagia, Halitosis, Hoarsness, Lip Swelling, Mouth Lesions, Mouth Pain, Odynophagia, Sore Throat, Throat Swelling, Tongue Swelling, Facial Pain, Neck Pain, Neck Mass, Other - Cardiovascular Cardiovascular: As Per HPI - Respiratory Respiratory: absent: As Per HPI, Cough, Dyspnea, Hemoptysis, Dyspnea on Exertion, Wheezing, Snoring, Stridor, Pain on Inspiration, Chest Congestion, Excessive Mucous Production, Change in Mucous Color, Pain with Coughing, Other - Gastrointestinal Gastrointestinal: absent: As Per HPI, Abdominal Pain, Belching, Bloating, Change in Bowel Habits, Change in Stool Character, Coffee Ground Emesis, Constipation, Cramping, Diarrhea, Dyspepsia, Dysphagia, Early Satiety, Excessive Flatus, Fecal Incontinence, Heartburn, Hematemesis, Hematochezia, Loose Stools, Melena, Nausea, Odynophagia, Temesmus, Vomiting, Other - Genitourinary Genitourinary: absent: As Per HPI, Change in Urinary Stream, Difficulty Urina ting, Dysuria, Flank Pain, Hematuria, Pyuria, Nocturia, Urinary Incontinence, Urinary Frequency, Urinary Hesitance, Urinary Urgency, Voiding Freq/Small Amts, Freq UTI, Hx Renal/Bladder Calculi, Hx /Renal Surgery, Bladder Distension, Other - Reproductive: Female Reproductive:Female: absent: As Per HPI, Amenorrhea, Amenorrhea/ Control, Currently Menstual, Cycle <21 Days, Cycle >35 Days, Cycle Variable, Menses 1-7 Days, Menses >/= 8 Days, Menses Variable, Cycle > 4 Weeks Between, No Menses for 6 Months, Heavy Menses, Light Menses, Normal Menses, Spotting Between Cycles, S/P Hysterectomy, Menopausal, Post Menopausal, Premenarche, Abnormal Vaginal Ble eding, Dysmenorrhea, Dyspareunia, Genital Lesions, Genital Pruritis, Pelvic Pain, Prolapse Symptoms, Sexual Dysfunction, Vaginal Discharge, Vaginal Dryness, Vaginal Odor, Vaginal Pruritis, Other - Menstruation Menstruation: absent: As Per HPI, Amenorrhea, Amenorrhea/ Control, Currently Menstual, Cycle <21 Days, Cycle >35 Days, Cycle Variable, Menses 1-7 Days, Menses >/= 8 Days, Menses Variable, Cycle > 4 Weeks Between, No Menses for 6 Months, Heavy Menses, Light Menses, Normal Menses, Spotting Between Cycles, S/P Hysterectomy, Menopausal, Post Menopausal, Premenarche, Abnormal Vaginal Bleeding, Dysmenorrhea, Other - Musculoskeletal Musculoskeletal: As Per HPI - Integumentary Integumentary: absent: As Per HPI, Acne, Alopecia, Bleeding Lesions, Change in Hair, Change in Nails, Change in Pigmentation, Changing Lesions, Dry Skin, Erythema, Furuncle, Hirsutism, Lesions, New Lesions, Non-Healing Lesions, Photosensitivity, Pruritus, Rash, Skin Pain, Skin Ulcer, Sores, Striae, Swelling, Unusual Bruising, Wounds, Jaundice, Other - Neurological Neurological: absent: As Per HPI, Abnormal Gait, Abnormal Hearing, Abnormal Movements, Abnormal Speech, Behavioral Changes, Burning Sensations, Confusion, Convulsions, Disequilibrium, Dizziness, Numbness, Focal Weakness, Frequent Falls, Headaches, Lack of Coordination, Loss of Vision, Memory Loss, Paresthesias, Radicular Pain, Restless Legs, Sensory Deficit, Syncope, Tingling, Tremor, Vertigo, Weakness, Other Visual Disturbances, Other - Psychiatric Psychiatric: absent: As Per HPI, Abnormal Sleep Pattern, Anhedonia, Anxiety, Auditory Hallucinations, Behavioral Changes, Change in Appetite, Change in Libido, Confusion, Depression, Difficulty Concentrating, Hallucinations, Homicidal Ideation, Hopelessness, Irritability, Memory Loss, Mood Swings, Panic Attacks, Paranoia, Suicidal Ideation, Visual Hallucinations, Tactile Hallucinations, Other - Endocrine Endocrine: absent: As Per HPI, Change in Body Appearance, Change in Libido, Cold Intolorance, Deepening of Voice, Excessive Sweating, Fatigue, Flushing, Heat Intolorance, Increase in Ring/Shoe/Hat Size, Palpitations, Polydipsia, Polyphagia, Polyuria, Other - Hematologic/Lymphatic Hematologic: absent: As Per HPI, Easy Bleeding, Easy Bruising, Lymphadenopathy, Other Past Patient History - Infectious Disease Hx of Infectious Diseases: None - Past Medical History & Family History Past Medical History?: Yes - Past Social History Smoking Status: Never Smoked - CARDIAC Hx Hypercholesterolemia: Yes Hx Hypertension: Yes - PULMONARY Hx Respiratory Disorders: No - NEUROLOGICAL Hx Neurological Disorder: No - HEENT Hx HEENT Problems: Yes Hx Cataracts: Yes (BENJIE IOL) Hx Glaucoma: Yes - RENAL Hx Chronic Kidney Disease: Yes ("STAGE 4" ON MED RECORD) - HEMATOLOGICAL/ONCOLOGICAL Hx Anemia: Yes - INTEGUMENTARY Hx Dermatological Problems: No - MUSCULOSKELETAL/RHEUMATOLOGICAL Hx Arthritis: Yes (MILD) - GASTROINTESTINAL Hx Gastrointestinal Disorders: Yes - GENITOURINARY/GYNECOLOGICAL Hx Genitourinary Disorders: Yes Hx Urinary Tract Infection: Yes Other/Comment: Mckeon Catheter - PSYCHIATRIC Hx Substance Use: No - SURGICAL HISTORY Hx Surgeries: Yes Hx Herniorrhaphy: Yes (UMBILICAL HERNIA) Other/Comment: CYST REMOVAL PER PATIENT - ANESTHESIA Hx Anesthesia: Yes Hx Anesthesia Reactions: No Hx Malignant Hyperthermia: No Meds Allergies/Adverse Reactions: Allergies Allergy/AdvReac Type Severity Reaction Status Date / Time No Known Allergies Allergy Verified 01/04/19 15:33 - Medications Medications: Current Medications Heparin Sodium (Porcine) (Heparin) 5,000 units SC Q8 [facility] Last Admin: 01/07/19 13:53 Dose: 5,000 units Piperacillin Sod/Tazobactam (Sod 2.25 gm/ Sodium Chloride) 100 mls @ 200 mls/hr IVPB Q8H [facility]; Protocol Last Admin: 01/07/19 08:28 Dose: 200 mls/hr Meropenem 500 mg/ Sodium (Chloride) 100 mls @ 100 mls/hr IVPB Q8H [facility]; Protocol Last Admin: 01/07/19 10:58 Dose: 100 mls/hr Influenza Virus Vaccine (Flucelvax Quad [id number] Syr) 60 mcg IM .ONCE ONE Stop: 01/08/19 10:01 Insulin Glargine (Lantus) 20 unit SC [facility] Last Admin: 01/06/19 21:27 Dose: 20 unit Insulin Human Regular (Novolin R) 0 unit SC [facility]; Protocol Last Admin: 01/07/19 13:53 Dose: 1 unit Losartan Potassium (Cozaar) 25 mg PO DAILY [facility] Last Admin: 01/07/19 10:58 Dose: 25 mg Metoprolol Succinate (Toprol Xl) 25 mg PO DAILY [facility] Last Admin: 01/07/19 10:58 Dose: 25 mg Oxycodone/Acetaminophen (Percocet 5/325 Mg Tab) 1 tab PO Q4H PRN PRN Reason: Pain, moderate (4-7) Stop: 01/07/19 20:32 Last Admin: 01/05/19 09:11 Dose: 1 tab Rosuvastatin Calcium (Crestor) 2.5 mg PO [facility] Last Admin: 01/06/19 21:28 Dose: 2.5 mg Physical Exam - Constitutional Appears: Non-toxic, Chronically Ill - Head Exam Additional comments: bruise left orbit - Eye Exam Eye Exam: EOMI, PERRL Pupil Exam: NORMAL ACCOMODATION - ENT Exam ENT Exam: Mucous Membranes Dry, Normal Oropharynx - Respiratory Exam Respiratory Exam: Decreased Breath Sounds, Clear to Auscultation Bilateral - Cardiovascular Exam Cardiovascular Exam: REGULAR RHYTHM, +S1, +S2 - GI/Abdominal Exam GI & Abdominal Exam: Diminished Bowel Sounds, Soft. absent: Tenderness - Rectal Exam Rectal Exam: Deferred - Exam Exam: NORMAL INSPECTION - Back Exam Back exam: absent: CVA tenderness (L), CVA tenderness (R) - Neurological Exam Neurological exam: Alert, CN II-XII Intact, Oriented x3, Reflexes Normal - Psychiatric Exam Psychiatric exam: Depressed - Skin Skin Exam: Dry, Intact Results - Vital Signs Recent Vital Signs: Last Vital Signs Temp 98.0 F 01/07/19 07:10 Pulse 79 01/07/19 07:10 Resp 18 01/07/19 07:10 BP 157/88 H 01/07/19 07:10 Pulse Ox 94 L 01/07/19 07:10 - Labs Result Diagrams: 01/06/19 08:20 03/23/19 08:20 Labs: Laboratory Results - last 24 hr 01/06/19 01/06/19 01/07/19 16:16 21:32 06:10 POC Glucose (mg/dL) 195 H 249 H 164 H 01/07/19 11:30 POC Glucose (mg/dL) 164 H Assessment & Plan (1) ESBL (extended spectrum beta-lactamase) producing bacteria infection Status: Acute (2) Contusion of face Status: Acute (3) Displaced fracture of distal end of left radius Status: Acute (4) Head injury Status: Acute (5) Renal insufficiency Status: Acute (6) Syncope and collapse Status: Acute - Assessment and Plan (Free Text) Assessment: cont iv rx and wound care Merrem added
--- NOTE | 2019-01-07 20:07 | CARD ---
APPROVED REPORT Date of service: 01/04/2019 EKG Measurement Heart [id number] CT 140P72 [id number] <Conclusion> Normal sinus rhythm Possible Left atrial enlargement Nonspecific ST and T wave abnormality Abnormal ECG
--- NOTE | 2019-01-07 21:47 | CP.PCM.PN ---
Subjective - Date & Time of Evaluation Date of Evaluation: 01/07/19 Time of Evaluation: 08:20 - Subjective Subjective: dictated Objective - Vital Signs/Intake and Output Vital Signs (last 24 hours): Temp Pulse Resp BP Pulse Ox 97.8 F 76 20 146/72 95 01/07/19 15:00 01/07/19 15:00 01/07/19 15:00 01/07/19 15:00 01/07/19 15:00 Intake and Output: 01/07/19 01/08/19 18:59 06:59 Intake Total 440 Output Total 0 Balance 440 - Medications Medications: Current Medications Heparin Sodium (Porcine) (Heparin) 5,000 units SC Q8 [facility] Last Admin: 01/07/19 13:53 Dose: 5,000 units Meropenem 500 mg/ Sodium (Chloride) 100 mls @ 100 mls/hr IVPB Q8H [facility]; Protocol Last Admin: 01/07/19 18:38 Dose: 100 mls/hr Influenza Virus Vaccine (Flucelvax Quad [id number] Syr) 60 mcg IM .ONCE ONE Stop: 01/08/19 10:01 Insulin Glargine (Lantus) 20 unit SC [facility] Last Admin: 01/06/19 21:27 Dose: 20 unit Insulin Human Regular (Novolin R) 0 unit SC [facility]; Protocol Last Admin: 01/07/19 16:49 Dose: Not Given Losartan Potassium (Cozaar) 25 mg PO DAILY [facility] Last Admin: 01/07/19 10:58 Dose: 25 mg Metoprolol Succinate (Toprol Xl) 25 mg PO DAILY [facility] Last Admin: 01/07/19 10:58 Dose: 25 mg Rosuvastatin Calcium (Crestor) 2.5 mg PO [facility] Last Admin: 01/06/19 21:28 Dose: 2.5 mg - Labs Labs: 01/06/19 08:20 01/06/19 08:20 PT 12.5 SECONDS (9.7-12.2) H 01/04/19 16:26 INR 1.1 01/04/19 16:26 APTT 29 SECONDS (21-34) 01/04/19 16:26
[2019-01-07] MEDS: (Lantus) Insulin Glargine, Recombinant SC SCH (21:52)
[2019-01-07] MEDS: Rosuvastatin Calcium 2.5 mg Tab PO SCH (21:55)
--- NOTE | 2019-01-08 02:55 | PN ---
DATE: 01/07/2019 SUBJECTIVE: The patient is afebrile. decreased dysuria. Positive Mckeon. Decreased swelling in the left arm and left side of the face. No nausea or vomiting. PHYSICAL EXAMINATION: VITAL SIGNS: Blood pressure 146/72, pulse 76, respiratory rate 20, temperature 97.8. LUNGS: Clear. No rales. No rhonchi. CARDIOVASCULAR: S1, S2 regular. No heave noted. ABDOMEN: Soft and nontender. Bowel sounds are positive. ASSESSMENT: 1. Urinary tract infection with multidrug-resistant Escherichia coli. 2. Type 2 diabetes, on insulin. 3. Hypertension. 4. Neurogenic bladder. 5. Fall with multiple injuries. PLAN: Continue current medications. Monitor the patient. Lorenzo Lyn MD
[2019-01-08] MEDS: Meropenem 500 MG in Sodium Chloride 0.9% 100 ML IVPB SCH ×2 (03:09→10:48)
[2019-01-08] MEDS: (Novolin R) Insulin Human Regular 100 units/ml vial SC SCH ×3 (08:16→16:47)
[2019-01-08] MEDS ORDERED: Influenza Vaccine 60 mcg/0.5 mL SYR (4YR UP) IM ONE (10:00)
[2019-01-08] MEDS: Metoprolol Succinate 25 mg XL Tab PO SCH (10:47)
[2019-01-08 14:29] LABS: BASO % 0.5 % (0.0-2.0); EOS # 0.3 K/uL (0.0-0.7); EOS % 3.7 % (0.0-4.0); HEMOGLOBIN 10.4 g/dL (11.0-16.0); LYMPH # 1.5 K/uL (1.0-4.3); LYMPH % 17.3 % (20.0-40.0); MEAN CELL VOLUME 89.1 fL (81.0-99.0); MEAN CORPUSCULAR HEMOGLOBIN 29.8 pg (27.0-31.0); MEAN CORPUSCULAR HGB CONC 33.4 g/dL (33.0-37.0); MEAN PLATELET VOLUME 7.3 fL (7.2-11.7); MONO # 0.7 K/uL (0.0-0.8); MONO % 8.8 % (0.0-10.0); NEUT # 5.9 K/uL (1.8-7.0); NEUT % 69.7 % (50.0-75.0); NRBC % 0.1 % (0.0-2.0); RBC 3.5 Mil/uL (3.80-5.20); RED CELL DISTRIBUTION WIDTH 14.3 % (11.5-14.5); WHITE BLOOD COUNT 8.5 K/uL (4.8-10.8)
[2019-01-08 14:45] LABS: CALCIUM 8.2 mg/dl (8.6-10.4)
--- NOTE | 2019-01-08 15:26 | CP.PCM.PN ---
Subjective - Date & Time of Evaluation Date of Evaluation: 01/08/19 Time of Evaluation: 15:24 - Subjective Subjective: Family at bedside. Patient is complaining splint is too tight. Denies numbness/tingling. Pain controlled. She refuses to have hand elevated in sling, advised family and patient importance of elevation for swelling and how to elevate hand above elbow. Advised patient and family that post reduction position is acceptable, but removing splint can cause loss of reduction and need for surgery. Also, due to comminution and nature of fracture, loss of reduction and possible need for surgery in future is possibility, and close orthopedic follow up is necessary. Family verbalized understanding and agree. Review of Systems - Review of Systems All systems: reviewed and no additional remarkable complaints except - Musculoskeletal Musculoskeletal: As Par HPI - Neurological Neurological: As Per HPI Objective - Vital Signs/Intake and Output Vital Signs (last 24 hours): Temp Pulse Resp BP Pulse Ox 97.9 F 84 20 162/97 H 97 01/08/19 09:06 01/08/19 09:06 01/08/19 09:06 01/08/19 09:06 01/08/19 09:06 - Medications Medications: Current Medications Meropenem 500 mg/ Sodium (Chloride) 100 mls @ 100 mls/hr IVPB Q12H [facility]; Protocol Insulin Glargine (Lantus) 20 unit SC [facility] Last Admin: 01/07/19 21:52 Dose: 20 unit Insulin Human Regular (Novolin R) 0 unit SC [facility]; Protocol Last Admin: 01/08/19 12:56 Dose: 1 unit Losartan Potassium (Cozaar) 25 mg PO DAILY [facility] Last Admin: 01/08/19 10:48 Dose: 25 mg Metoprolol Succinate (Toprol Xl) 50 mg PO DAILY [facility] Rosuvastatin Calcium (Crestor) 2.5 mg PO HS [facility] Last Admin: 01/07/19 21:55 Dose: 2.5 mg - Labs Labs: 01/08/19 14:12 01/08/19 14:12 PT 12.5 SECONDS (9.7-12.2) H 01/04/19 16:26 INR 1.1 01/04/19 16:26 APTT 29 SECONDS (21-34) 01/04/19 16:26 - Constitutional Appears: Well, No Acute Distress - Head Exam Additional comments: facial ecchymosis - Respiratory Exam Respiratory Exam: NORMAL BREATHING PATTERN - Cardiovascular Exam Additional comments: +cap refill - Extremities Exam Additional comments: +ROM fingers jasen adjusted without removing splint, patient admits to improvement sensation intact med/rad/ulnar nerves - Neurological Exam Neurological Exam: Alert Neuro motor strength exam: Left Lower Extremity: 5 - Psychiatric Exam Psychiatric exam: Normal Affect, Normal Mood - Skin Skin Exam: Dry, Intact (+swelling fingers), Warm Assessment and Plan (1) Displaced fracture of distal end of left radius Assessment & Plan: sugar tong splint at all times elevation non operative with current fracture post reduction position keep splint dry and intact f/u Dr. Patrick 1 week after discharge ortho stable for d/c dw/ Dr. Patrick, agrees with above Status: Acute
[2019-01-08 16:16] VITALS: BP 152/74; PULSE 85; RESP 18; TEMP 98.9; O2SAT 96
--- NOTE | 2019-01-08 17:20 | CP.PCM.PN ---
Subjective - Date & Time of Evaluation Date of Evaluation: 01/08/19 Time of Evaluation: 14:00 - Subjective Subjective: Patient seen today denies any dizziness, headache, blurred vision , numbness/ tinglings to the left upper extremity , c/o pain to the left arm , improved with pain medications vss an d labs reviewed a febrile cr - 3.8 - her base line since 2016 Objective - Vital Signs/Intake and Output Vital Signs (last 24 hours): Temp Pulse Resp BP Pulse Ox 98.9 F 85 18 152/74 H 96 01/08/19 15:16 01/08/19 15:16 01/08/19 15:16 01/08/19 15:16 01/08/19 15:16 - Medications Medications: Current Medications Hydralazine HCl (Apresoline) 25 mg PO Q8 [facility] Meropenem 500 mg/ Sodium (Chloride) 100 mls @ 100 mls/hr IVPB Q12H [facility]; Protocol Insulin Glargine (Lantus) 20 unit SC HS [facility] Last Admin: 01/07/19 21:52 Dose: 20 unit Insulin Human Regular (Novolin R) 0 unit SC [facility]; Protocol Last Admin: 01/08/19 16:47 Dose: Not Given Losartan Potassium (Cozaar) 25 mg PO DAILY [facility] Last Admin: 01/08/19 10:48 Dose: 25 mg Metoprolol Succinate (Toprol Xl) 50 mg PO DAILY [facility] Rosuvastatin Calcium (Crestor) 2.5 mg PO HS [facility] Last Admin: 01/07/19 21:55 Dose: 2.5 mg - Labs Labs: 01/08/19 14:12 01/08/19 14:12 PT 12.5 SECONDS (9.7-12.2) H 01/04/19 16:26 INR 1.1 01/04/19 16:26 APTT 29 SECONDS (21-34) 01/04/19 16:26 - Constitutional Appears: Well, No Acute Distress - Eye Exam Eye Exam: Periorbital swelling Additional comments: echymosis around left eye area - Extremities Exam Additional comments: left upper extremity with sling - Neurological Exam Neurological Exam: Alert, Oriented x3 Assessment and Plan - Assessment and Plan (Free Text) Assessment: A/P 78 yr old female with pmhx of Diabetes, Gastrointestinal Ulcer, HTN, Hypercholesterolemia, Chronic Kidney Disease presents to ER with son for evaluation of left side pain s/p fall today. admitted with Displaced fracture of distal end of left radius CT orbit- No acute orbital or maxillofacial fracture. Mild left supraorbital soft tissue swelling. CT - head -no acute intracranial abnormality Patient accepted at [facility] for rehab Dr. Sainz on consult for fx and recommends sugar tong splint at all times elevation non operative with current fracture post reduction position, keep splint dry and intact ,f/u Dr. Patrick 1 week after discharge ortho stable for d/c Urine culture positive for ecoli and sensitive to merrum and started on merrum , D/w Dr. Lyn, cleared for discharge to [facility] today and Dr. Lyn will follow the patient at [facility] will continue merrum for 5 more days an drepeat urine culture after the completion of antibiotics
--- NOTE | 2019-01-08 22:56 | CP.PCM.DIS ---
Provider - Provider Date of Admission: 01/05/19 18:59 Attending physician: Lorenzo Lyn MD Consults: 01/04/19 18:52 Physician Consult Stat Comment: Consulting Provider: Julio Patrick Consulting Physician: Julio Patrick Reason for Consult: wrist fracture 01/06/19 10:48 Physician Consult Routine Comment: Consulting Provider: Samuel Sr Consulting Physician: Samuel Sr Reason for Consult: ESBL, E COLI Time Spent in preparation of Discharge (in minutes): 30 Hospital Course - Lab Results Lab Results: Micro Results 01/04/19 18:54 Urine Random Urine Culture - Final Escherichia Coli Most Recent Lab Values WBC 8.5 K/uL (4.8-10.8) 01/08/19 14:12 RBC 3.50 Mil/uL (3.80-5.20) L 01/08/19 14:12 Hgb 10.4 g/dL (11.0-16.0) L 01/08/19 14:12 Hct 31.1 % (34.0-47.0) L 01/08/19 14:12 MCV 89.1 fL (81.0-99.0) 01/08/19 14:12 MCH 29.8 pg (27.0-31.0) 01/08/19 14:12 MCHC 33.4 g/dL (33.0-37.0) 01/08/19 14:12 RDW 14.3 % (11.5-14.5) 01/08/19 14:12 Plt Count 291 K/uL (130-400) 01/08/19 14:12 MPV 7.3 fL (7.2-11.7) 01/08/19 14:12 Neut % (Auto) 69.7 % (50.0-75.0) 01/08/19 14:12 Lymph % (Auto) 17.3 % (20.0-40.0) L 01/08/19 14:12 [place] % (Auto) 8.8 % (0.0-10.0) 01/08/19 14:12 Eos % (Auto) 3.7 % (0.0-4.0) 01/08/19 14:12 Baso % (Auto) 0.5 % (0.0-2.0) 01/08/19 14:12 Neut # (Auto) 5.9 K/uL (1.8-7.0) 01/08/19 14:12 Lymph # (Auto) 1.5 K/uL (1.0-4.3) 01/08/19 14:12 [place] # (Auto) 0.7 K/uL (0.0-0.8) 01/08/19 14:12 Eos # (Auto) 0.3 K/uL (0.0-0.7) 01/08/19 14:12 Baso # (Auto) 0.0 K/uL (0.0-0.2) 01/08/19 14:12 PT 12.5 SECONDS (9.7-12.2) H 01/04/19 16:26 INR 1.1 01/04/19 16:26 APTT 29 SECONDS (21-34) 01/04/19 16:26 Sodium 134 mmol/L (132-148) 01/08/19 14:12 Potassium 4.7 mmol/L (3.6-5.2) 01/08/19 14:12 Chloride 107 mmol/L (98-107) 01/08/19 14:12 Carbon Dioxide 18 mmol/L (22-30) L 01/08/19 14:12 Anion Gap 14 (10-20) 01/08/19 14:12 BUN 59 mg/dL (7-17) H 01/08/19 14:12 Creatinine 3.9 mg/dL (0.7-1.2) H 01/08/19 14:12 Est GFR ( Amer) 13 01/08/19 14:12 Est GFR (Non-Af Amer) 11 01/08/19 14:12 POC Glucose (mg/dL) 141 mg/dL (65-110) H 01/08/19 16:42 Random Glucose 190 mg/dL (65-105) H D 01/08/19 14:12 Calcium 8.2 mg/dl (8.6-10.4) L 01/08/19 14:12 Magnesium 1.8 mg/dL (1.6-2.3) 01/04/19 16:26 Total Bilirubin 0.4 mg/dL (0.2-1.3) 01/06/19 08:20 AST 27 U/L (14-36) 01/06/19 08:20 ALT 10 U/L (9-52) 01/06/19 08:20 Alkaline Phosphatase 77 U/L (38-126) 01/06/19 08:20 Total Creatine Kinase 1022 U/L (30-135) H 01/04/19 16:26 CK-MB (Mass) 9.04 ng/mL (0.0-3.38) H 01/04/19 16:26 Troponin I 0.0400 ng/mL (0.00-0.120) 01/04/19 16:26 Total Protein 6.4 g/dL (6.3-8.3) 01/06/19 08:20 Albumin 3.4 g/dL (3.5-5.0) L D 01/06/19 08:20 Globulin 2.9 gm/dL (2.2-3.9) 01/06/19 08:20 Albumin/Globulin Ratio 1.2 (1.0-2.1) 01/06/19 08:20 Urine Color Yellow (YELLOW) 01/04/19 18:54 Urine Clarity Hazy (Clear) 01/04/19 18:54 Urine pH 5.0 (5.0-8.0) 01/04/19 18:54 Ur Specific [place] 1.008 (1.003-1.030) 01/04/19 18:54 Urine Protein 2+ mg/dL (NEGATIVE) H 01/04/19 18:54 Urine Glucose (UA) 2+ mg/dL (Normal) H 01/04/19 18:54 Urine Ketones Negative mg/dL (NEGATIVE) 01/04/19 18:54 Urine Blood 2+ (NEGATIVE) H 01/04/19 18:54 Urine Nitrate Negative (NEGATIVE) 01/04/19 18:54 Urine Bilirubin Negative (NEGATIVE) 01/04/19 18:54 Urine Urobilinogen Normal mg/dL (0.2-1.0) 01/04/19 18:54 Ur Leukocyte Esterase 1+ Raj/uL (Negative) H 01/04/19 18:54 Urine WBC (Auto) 21 /hpf (0-5) H 01/04/19 18:54 Urine RBC (Auto) < 1 /hpf (0-3) 01/04/19 18:54 Ur Squamous Epith Cells < 1 /hpf (0-5) 01/04/19 18:54 Urine Bacteria Occ (<OCC) H 01/04/19 18:54 Discharge Plan - Discharge Medications Prescriptions: Meropenem [Merrem IV] 500 mg IVPB Q12H #10 vial - Follow Up Plan Condition: FAIR Disposition: REHAB FACILITY/REHAB UNIT Instructions: Contusion (DC), Wrist Fracture (DC), Radius Fracture (DC), Urinary Tract Infection in Women (DC), Syncope (DC) Additional Instructions: Please admit patient under Dr. Lyn service - Call Dr. Lyn upon patient arival to [facility] facility Please f/u with Dr. Alistair Kim office in 1 week - call and make appointment and please arrange transportation ( f/u visit very important) continue medication as per med. rec. Please continue merrum x 5 more days Please repeat urine culture after the completion of antibiotics Please do bmp q 3 days for 1 week and then per facility protocol Please make sure sugar tong splint at all times elevation upper left arm keep splint dry and intact f/u Dr. Patrick 1 week after discharge Referrals: Lorenzo Lyn MD [Staff Provider] - Samuel Sr MD [Staff Provider] - Julio Patrick MD [Staff Provider] -
[2019-01-08] MEDS ORDERED: Meropenem 500 MG in Sodium Chloride 0.9% 100 ML IVPB SCH (23:00)
[2019-01-09] MEDS ORDERED: Metoprolol Succinate 50 mg XL Tab PO SCH (10:00)
--- NOTE | 2019-01-09 23:20 | DS ---
DISCHARGE DIAGNOSES: 1. Fall with left arm fracture, left orbital injuries. 2. Hypertension. 3. Chronic kidney disease, not on hemodialysis. 4. Urinary tract infection, complicated due to Mckeon catheter. HISTORY OF PRESENT ILLNESS: This is an 78-year-old female well known to me with history of neurogenic bladder, chronic indwelling Mckeon catheter, diabetes, hypertension, hyperlipidemia. The patient is compliant with diet, medication and followup. She had a fall with injury to left arm with a fracture and left orbital injuries. The patient was admitted to the floor. She was started on pain medications. She had a cast placed on her left arm and the patient was found to have urinary tract infection which is complicated with multidrug resistant E. coli. The patient was treated with antibiotics, switched over to Merrem and she is for discharge to subacute rehab for one more week of antibiotics, physiotherapy, pain medications. PHYSICAL EXAMINATION: VITAL SIGNS: Blood pressure 152/74, pulse 85, respiratory rate 18, temperature 98.9. LUNGS: Clear. No rales. No rhonchi. CARDIOVASCULAR SYSTEM: PMI not localized. S1 and S2, regular. ABDOMEN: Soft with a Mckeon catheter in place. PLAN: Discharged the patient to subacute rehab. Lorenzo Lyn MD
== END 2019-01-08 18:46 | DRG 563 ==
LOC: C.ER 15:13 → C.9E 18:50 → C.5S 19:28 → OBSVTOIN 01-05 18:59
PROVIDERS: ADMIT Internal Medicine; ATTEND Internal Medicine
PROC: 0PSJXZZ Reposition Left Radius, External Approach (ICD-10-PCS; principal; 2019-01-05)
DX: S52.502A Unspecified fracture of the lower end of left radius, initial encounter for closed fracture (principal); T83.511A Infection and inflammatory reaction due to indwelling urethral catheter, initial encounter; N39.0 Urinary tract infection, site not specified; S05.12XA Contusion of eyeball and orbital tissues, left eye, initial encounter; S00.03XA Contusion of scalp, initial encounter; N18.4 Chronic kidney disease, stage 4 (severe); N31.9 Neuromuscular dysfunction of bladder, unspecified; E11.22 Type 2 diabetes mellitus with diabetic chronic kidney disease; S00.83XA Contusion of other part of head, initial encounter; Z16.12 Extended spectrum beta lactamase (ESBL) resistance; B96.20 Unspecified Escherichia coli [E. coli] as the cause of diseases classified elsewhere; R55 Syncope and collapse; E11.65 Type 2 diabetes mellitus with hyperglycemia; I12.9 Hypertensive chronic kidney disease with stage 1 through stage 4 chronic kidney disease, or unspecified chronic kidney disease; W19.XXXA Unspecified fall, initial encounter; M53.82 Other specified dorsopathies, cervical region; M48.02 Spinal stenosis, cervical region; H40.9 Unspecified glaucoma; E78.00 Pure hypercholesterolemia, unspecified; Z87.11 Personal history of peptic ulcer disease; Z16.24 Resistance to multiple antibiotics; E04.2 Nontoxic multinodular goiter; E78.5 Hyperlipidemia, unspecified; M25.78 Osteophyte, vertebrae; M46.90 Unspecified inflammatory spondylopathy, site unspecified; M81.0 Age-related osteoporosis without current pathological fracture; Y84.6 Urinary catheterization as the cause of abnormal reaction of the patient, or of later complication, without mention of misadventure at the time of the procedure; Z79.4 Long term (current) use of insulin; Z87.440 Personal history of urinary (tract) infections